=== PATIENT | female | born 1995 | race Caucasian/White ===

== ENCOUNTER 2021-01-10 13:38 | Outpatient (REF) | payer OTHER, SELFPAY ==
[2021-01-10 14:26] LABS: MANUAL DIFF FLAG NO
[2021-01-10 14:31] LABS: Basophils Absolute Auto 0.1 X10*3/uL (0.0-0.2); Basophils Percent Auto 0.9 % (0-2); Eosinophils Percent Auto 0.5 % (0-4); Hematocrit 41.7 % (37-47); Hemoglobin 13.6 g/dl (12.0-16.0); Imm Gran Abs Auto 0.02 X10*3/uL (0.00-0.03); Imm Gran Pct Auto 0.4 % (0.0-0.4); Lymphocytes Absolute Auto 1.9 X10*3/uL (1.2-4.9); Lymphocytes Percent Auto 33.9 % (20-40); Mean Corpuscular HGB Conc 32.6 g/dl (31.0-35.0); Mean Corpuscular Hemoglobin 30.8 pg (27.0-33.0); Mean Corpuscular Volume 94.6 fL (80-98); Monocytes Absolute Auto 0.4 X10*3/uL (0.1-1.2); Monocytes Percent Auto 7.3 % (2-11); Neutrophils Absolute Auto 3.2 X10*3/uL (2.0-8.3); Platelet Count 220 X10*3/uL (160-400); Red Blood Count 4.41 X10*6/uL (4.20-5.50); Red Cell Distribution Width 12.1 % (11.0-16.0); White Blood Count 5.6 X10*3/uL (4.8-10.8)
[2021-01-10 14:51] LABS: Alanine Aminotransferase 14 U/L (0-31); Albumin Level 4.4 g/dL (3.5-5.0); Alkaline Phosphatase 42 U/L (39-117); Anion Gap 14 (12-20); Aspartate Amino Transferase 19 U/L (5-31); Bilirubin Total 0.7 mg/dL (0.0-1.0); Blood Urea Nitrogen 8 mg/dL (9-16); Calcium 10.2 mg/dL (8.4-10.2); Carbon Dioxide 27 mmol/L (22-29); Chloride 106 mmol/L (96-108); Cholesterol 165 mg/dL; Estimated Glomerular Filt Rate > 60; Glucose Random 82 mg/dL (60-115); HDL Cholesterol 68 mg/dL; LDL Cholesterol Calculated 90 mg/dl; Potassium 4.6 mmol/L (3.3-5.1); Sodium 142 mmol/L (135-145); Triglycerides 37 mg/dL
[2021-01-10 15:08] LABS: Thyroid Stimulating Hormone 0.83 uIU/mL (0.32-4.0)
== END 2021-01-10 13:39 | disposition home or self-care (01) ==
LOC: HO.LAB 13:38
PROVIDERS: Visit Provider Internal Medicine
DX: Z00.00 Encounter for general adult medical examination without abnormal findings (principal); F41.0 Panic disorder [episodic paroxysmal anxiety]; J45.909 Unspecified asthma, uncomplicated; L20.9 Atopic dermatitis, unspecified; Z13.31 Encounter for screening for depression; Z68.1 Body mass index [BMI] 19.9 or less, adult
CPT/HCPCS: 36415; 80053; 80061; 84443; 85025

== ENCOUNTER 2023-04-19 08:49 | Outpatient (AMB) | payer OTHER, SELFPAY ==
--- NOTE | 2023-04-19 08:56 | MHC.OFFVIS ---
Intake Vital Signs 04/19/23 08:57 Height 5 ft 4 in Weight 91 lb 11.397 oz BMI 15.7 BP 94/69 Blood Pressure Location Lt brachial Position Sitting Pulse 98 Intake Visit Reasons: Epigastric Pain, Weight Loss, Vomiting Intake Note: Jeffery presents to in office visit today as a new patient for epigastric pain. CC: Patient states that in [place] (about 4 years ago) she was told that her stomach does not empty well and that she had gastritis. She c/o epigastric pain for months. Per patient she vomits depending if she eats spicy foods or foods with sauces . She states that when she lays down flat she sees something moving from her stomach. Per patient her normal weight was 115-120 but she has been losing weight. Salvationist Required: Yes Accompanied by: Spouse Allergies No Known Allergies Allergy (Verified 04/19/23 09:05) HPI Epigastric Pain, Weight Loss, Vomiting HPI Details 28-year-old female here for initial evaluation of epigastric pain and vomiting. She is referred by Beronica Lucas [facility] Mitral valve prolapse with murmur Asthma Delayed gastric emptying via gastric emptying study 05/2021 -past patient of Dr. Moreno Hyperparathyroidism Anxiety/panic attacks * SURGICAL HISTORY Cholecystectomy section Tubal ligation * ALLERGIES: NKDA * MEDITECH LABS: none since 2020 TODAY'S VISIT [place] #Elizabeth Live Her is with her and is supportive. She says she has had a couple of years with gastritis over the past 3-4 years. She has been in the hospital last year for vomiting hyperemesis. She has pain with pressing her stomach in the gastric to epigastric area, this has been over 4 months. When she lays down she feels like something is moving inside my stomach, like a bump. This moves around the periumbilical area. She has frequent BM's since her GB was removed. Her stools are soft and she has post prandial urgency that is worse with sauces, spices, fatty or fried. The GB was removed 6 year ago. She has frequent vomiting, usually every time she eats or moves her bowels. However, she has not vomited over this past month. She finds that smaller more frequent meals addresses this. She was told in [place] that she should not eat fiber and she should eat portions like a bird. She will have cycles of 2-3 days of vomiting, but then a few days w/o vomiting - but this may be because she stopped eating. When she has vomiting she will have chills, tremors, weakness and her stomach hurts and she has to walk bent over. She is losing weight with this, she will struggle to put on a couple of pounds but then loses it again. She has gone from 125 lbs to 90lbs. She wound like to see a outreach consultant and I also think this is a good idea, but we have to find a dx that insurance would cover. Getting labs, GES, considering EGD but she has fears. ROV 4 weeks. [facility] Medical History Delayed gastric emptying Surgical History History of tubal ligation History of section History of cholecystectomy Family History Maternal Grandmother Pancreatic cancer Paternal Grandmother Pancreatic cancer Diabetes Social History Alcohol intake: never Patient Tobacco Use Status: Never used Tobacco Review of Systems Const Denies fatigue, Denies fever(s), Denies night sweats, Reports poor appetite and Reports weight loss Eyes Details: glasses Reports requires corrective lenses ENT Reports Normal hearing present, Denies dental pain, Denies dysphagia, Denies hearing loss, Denies mouth pain, Denies odynophagia, Denies throat swelling, Denies tongue swelling and Reports other (Dentition adequate) Card Reports no additional complaints Resp Reports no additional complaints GI Reports abdominal pain, Denies melena, Denies bloating, Denies hematochezia, Denies constipation, Reports GI cramping, Denies dysphagia, Denies excessive flatus, Denies early satiety, Reports dyspepsia, Denies heartburn, Denies diarrhea, Reports loose stools, Reports nausea, Denies odynophagia, Reports vomiting and Denies hematemesis Skin/Breast Denies pruritus, Denies lesions, Denies rash and Denies jaundice Neuro Reports Normal hearing present and Denies Abnormal speech present Endo Denies fatigue Aller/Immun Denies throat swelling and Denies tongue swelling Physical Exam Vital Signs: Last Vital Signs Pulse 98 04/19/23 08:57 BP 94/69 04/19/23 08:57 BMI result Body Mass Index 15.7 Const General: cooperative, no acute distress, well developed and well groomed Nutritional Appearance: well nourished and underweight Orientation/consciousness: oriented to person, oriented to place and oriented to time Limitations: language barrier HEENT Head: Yes normocephalic and Yes atraumatic Eyes General: appearance normal, both eyes and all related structures Pupils: Equal, round and reactive pupils present Neck Neck: Yes normal visual inspection and Yes no lymphadenopathy Thyroid: Thyroid normal Resp Effort & Inspection: normal respiratory effort and able to speak in complete sentences Auscultation: clear to auscultation bilaterally Cardio Rate: regular rate Rhythm: regular rhythm Heart sounds: Normal, physiologic split S2 sound present Peripheral pulses: radial pulses present and posterior tibial pulses present GI Inspection: No distended and No Abdominal panniculus present Palpation (GI): Soft to palpation, Tenderness to palpation present (GI) in the epigastrum, no guarding, not rigid and No hepatosplenomegaly present Percussion: Yes normal to percussion Auscultation: Hyperactive bowel sounds present Rectal Exam - Female: deferred Skin General skin exam: no rashes or lesions noted, turgor normal, skin not dry, no jaundice, No spider nevi and no striae Rashes: no rashes Nails: normal Neuro General: oriented to person, oriented to place and oriented to time Cranial nerves: Yes Equal, round and reactive pupils present and Yes Normal hearing present Speech: No Abnormal speech present Extrem General: Yes normal to inspection, No clubbing, No cyanosis and No edema Psych Appearance: grossly normal and well kempt Mental Status: mental status grossly normal Speech and movement: Normal speech and movement present Affect: normal affect Attitude: cooperative Thought process: Normal thought process present and not confabulating Thought content: Normal thought content present Insight: Limited insight present (Psych) Judgement: Limited judgement present (Psych) Assessment & Plan Assessment & Plan (1) Nausea and vomiting: Code(s): R11.2 - Nausea with vomiting, unspecified (2) Delayed gastric emptying: Code(s): K30 - Functional dyspepsia (3) Upper abdominal pain: Code(s): R10.10 - Upper abdominal pain, unspecified (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 She says she has had a couple of years with gastritis over the past 3-4 years. She has been in the hospital last year for vomiting hyperemesis. She has pain with pressing her stomach in the gastric to epigastric area, this has been over 4 months. When she lays down she feels like something is moving inside my stomach, like a bump. This moves around the periumbilical area. She has frequent BM's since her GB was removed. Her stools are soft and she has post prandial urgency that is worse with sauces, spices, fatty or fried. The GB was removed 6 year ago. She has frequent vomiting, usually every time she eats or moves her bowels. However, she has not vomited over this past month. She finds that smaller more frequent meals addresses this. [place] was told [place] that she should not eat fiber and she should eat portions like a bird. She will have cycles of 2-3 days of vomiting, but then a few days w/o vomiting - but this may be because she stopped eating. When she has vomiting she will have chills, tremors, weakness and her stomach hurts and she has to walk bent over. She is losing weight with this, she will struggle to put on a couple of pounds but then loses it again. She has gone from 125 lbs to 90lbs. She wound like to see a outreach consultant and I also think this is a good idea, but we have to find a dx that insurance would cover. Getting labs, GES, considering EGD but she has fears. ROV 4 weeks. Orders: Orders NM gastric emptying study Today K30 - Functional dyspepsia, R10.10 - Upper abdominal pain, unspecified, R11.2 - Nausea with vomiting, unspecified Complete Blood Count Auto Diff Today K30 - Functional dyspepsia, R10.10 - Upper abdominal pain, unspecified, R11.2 - Nausea with vomiting, unspecified Comprehensive Met. Panel Today K30 - Functional dyspepsia, R10.10 - Upper abdominal pain, unspecified, R11.2 - Nausea with vomiting, unspecified Medications: New sucralfate (Carafate) 2 grams (2 x 1 gram) PO BEDTIME 60 tabs 3RF K91.5 - Postcholecystectomy syndrome metoclopramide HCl (Reglan) 5 mg PO QIDACHS 120 tabs 3RF K30 - Functional dyspepsia Coding Level of Care Code New Pt Level 3 (58244) Diagnoses Nausea and vomiting R11.2 Delayed gastric emptying K30 Upper abdominal pain R10.10 Post-cholecystectomy syndrome K91.5
[2023-04-19 08:57] VITALS: BP 94/69; PULSE 98; BMI 15.7
== END 2023-04-19 09:57 | disposition home or self-care (01) ==
PROVIDERS: PCP Internal Medicine; Visit Provider Nurse Practitioner
DX: R11.2 Nausea with vomiting, unspecified (principal); K30 Functional dyspepsia; R10.10 Upper abdominal pain, unspecified; K91.5 Postcholecystectomy syndrome
CPT/HCPCS: 99203

== ENCOUNTER 2023-04-19 08:49 | Outpatient (REF) | payer OTHER, SELFPAY ==
[2023-04-19 10:14] LABS: MANUAL DIFF FLAG NO
[2023-04-19 10:55] LABS: Basophils Absolute Auto 0.1 X10*3/uL (0.0-0.2); Hematocrit 40.1 % (37.0-47.0); Hemoglobin 12.9 g/dl (12.0-16.0); Lymphocytes Absolute Auto 1.6 X10*3/uL (1.2-4.9); Lymphocytes Percent Auto 50.7 % (20-40); Mean Corpuscular HGB Conc 32.2 g/dl (31.0-35.0); Mean Corpuscular Volume 96.4 fL (80.0-98.0); Mean Platelet Volume 11.6 fL (9.4-12.3); Monocytes Absolute Auto 0.3 X10*3/uL (0.1-1.2); Monocytes Percent Auto 8.5 % (2-11); Neutrophils Absolute Auto 1.2 x10*3/uL (2.0-8.3); Neutrophils Percent Auto 37.8 % (45-73); Platelet Count 194 X10*3/uL (160-400); Red Blood Count 4.16 X10*6/uL (4.20-5.50); Red Cell Distribution Width 13.2 % (11.0-16.0); White Blood Count 3.1 X10*3/uL (4.8-10.8)
[2023-04-19 11:32] LABS: Alanine Aminotransferase 24 U/L (0-31); Albumin Level 4.3 g/dL (3.5-5.0); Alkaline Phosphatase 51 U/L (39-117); Anion Gap 12 (12-20); Aspartate Amino Transferase 22 U/L (5-31); Bilirubin Total 0.8 mg/dL (0.0-1.0); Blood Urea Nitrogen 11 mg/dL (9-16); Calcium 10.1 mg/dL (8.4-10.2); Carbon Dioxide 28 mmol/L (22-29); Chloride 102 mmol/L (96-108); Estimated Glomerular Filt Rate > 60; Glucose Random 94 mg/dL (60-115); Potassium 4.2 mmol/L (3.3-5.1); Sodium 138 mmol/L (135-145); Total Protein 8.2 g/dL (6.5-8.0)
== END 2023-04-19 08:50 | disposition home or self-care (01) ==
LOC: HO.LAB 08:49
PROVIDERS: PCP Internal Medicine; Visit Provider Nurse Practitioner
DX: R10.10 Upper abdominal pain, unspecified (principal); R11.2 Nausea with vomiting, unspecified; K30 Functional dyspepsia
CPT/HCPCS: 36415; 80053; 85025; 99202

== ENCOUNTER 2023-05-09 09:18 | Outpatient (REF) | payer OTHER, SELFPAY ==
--- NOTE | ~2023-05-09 | US_ITS ---
EXAMINATION: US ABDOMEN COMPLETE CLINICAL INFORMATION: Nausea and vomiting. COMPARISON: None available. TECHNIQUE: Real-time imaging of the abdominal viscera. FINDINGS: PANCREAS: Normal. ABDOMINAL AORTA: The proximal, mid, and distal segments are normal in caliber. INFERIOR VENA CAVA: Visualized portions are normal. LIVER: Normal. The liver is normal in size. The liver contour is normal. Parenchymal echogenicity is normal. No focal hepatic lesion. There is no intrahepatic biliary duct dilatation seen. GALLBLADDER: Surgically absent. COMMON BILE DUCT: Normal in caliber measuring 0.3 cm in diameter. RIGHT KIDNEY: Normal. No hydronephrosis. No renal calculi or focal parenchymal lesions. The kidney measures 9.5 cm in maximum dimension. LEFT KIDNEY: Normal. No hydronephrosis. No renal calculi or focal parenchymal lesions. The kidney measures 8.8 cm in maximum dimension. SPLEEN: Normal. The spleen measures 7.5 cm in maximum dimension. FREE FLUID: None. US/US abdomen complete IMPRESSION: No significant sonographic abnormality to explain the patient's symptoms.
== END 2023-05-09 09:19 | disposition home or self-care (01) ==
LOC: HO.US 09:18
PROVIDERS: PCP Internal Medicine; Visit Provider Nurse Practitioner
DX: R10.10 Upper abdominal pain, unspecified (principal); R11.2 Nausea with vomiting, unspecified; K30 Functional dyspepsia
CPT/HCPCS: 76700

== ENCOUNTER 2023-05-17 09:07 | Outpatient (AMB) | payer OTHER, SELFPAY ==
--- NOTE | 2023-05-17 09:18 | MHC.OFFVIS ---
Intake Vital Signs 05/17/23 09:24 Height 5 ft 4 in Weight 88 lb BMI 15.1 BP 102/72 Blood Pressure Location Lt brachial Position Sitting Pulse 76 Intake Visit Reasons: 4 week follow up Intake Note: Patient follow up for Patient cc: abdominal pain, last 2 weeks she was with vomit. Denies any other GI issues. 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 She says she has had a couple of years with gastritis over the past 3-4 years. She has been in the hospital last year for vomiting hyperemesis. She has pain with pressing her stomach in the gastric to epigastric area, this has been over 4 months. When she lays down she feels like something is moving inside my stomach, like a bump. This moves around the periumbilical area. She has frequent BM's since her GB was removed. Her stools are soft and she has post prandial urgency that is worse with sauces, spices, fatty or fried. The GB was removed 6 year ago. She has frequent vomiting, usually every time she eats or moves her bowels. However, she has not vomited over this past month. She finds that smaller more frequent meals addresses this. She was told in [place] that she should not eat fiber and she should eat portions like a bird. She will have cycles of 2-3 days of vomiting, but then a few days w/o vomiting - but this may be because she stopped eating. When she has vomiting she will have chills, tremors, weakness and her stomach hurts and she has to walk bent over. She is losing weight with this, she will struggle to put on a couple of pounds but then loses it again. She has gone from 125 lbs to 90lbs. She wound like to see a child and family services worker and I also think this is a good idea, but we have to find a dx that insurance would cover. Getting labs, GES, considering EGD but she has fears. ROV 4 weeks. Orders: Orders NM gastric emptyin g study Today K30 - Functional d yspepsia, R10.10 - Upper abdominal p ain, unspecified, R11.2 - Nausea wit h vomiting, unspec ified Complete Blood Cou nt Auto Diff Today K30 - Functional d yspepsia, R10.10 - Upper abdominal p ain, unspecified, R11.2 - Nausea wit h vomiting, unspec ified Comprehensive Met. Panel Today K30 - Functional d yspepsia, R10.10 - Upper abdominal p ain, unspecified, R11.2 - Nausea wit h vomiting, unspec ified Medications: New sucralfate (Carafa te) 2 grams (2 x 1 gra m) PO BEDTIME 60 t abs 3RF K91.5 - Postcholec ystectomy syndrome metoclopramide HCl (Reglan) 5 mg PO QIDACHS 1 20 tabs 3RF K30 - Functional d yspepsia LABS: Laboratory Tests 04/19/23 10:12 WBC 3.1 L RBC 4.16 L Hgb 12.9 Hct 40.1 Plt Count 194 Estimated GFR > 60 Total Bilirubin 0.8 AST 22 ALT 24 Alkaline Phosphata se 51 US ABD ORDERED BY PCP PANCREAS: Normal. ABDOMINAL AORTA: The proximal, mid, and distal segments are normal in caliber. INFERIOR VENA CAVA: Visualized portions are normal. LIVER: Normal. The liver is normal in size. The liver contour is normal. Parenchymal echogenicity is normal. No focal hepatic lesion. There is no intrahepatic biliary duct dilatation seen. GALLBLADDER: Surgically absent. COMMON BILE DUCT: Normal in caliber measuring 0.3 cm in diameter. RIGHT KIDNEY: Normal. No hydronephrosis. No renal calculi or focal parenchymal lesions. The kidney measures 9.5 cm in maximum dimension. LEFT KIDNEY: Normal. No hydronephrosis. No renal calculi or focal parenchymal lesions. The kidney measures 8.8 cm in maximum dimension. SPLEEN: Normal. The spleen measures 7.5 cm in maximum dimension. FREE FLUID: None. US/US abdomen complete IMPRESSION: No significant sonographic abnormality to explain the patient's symptoms. GASTRIC EMPTYING STUDY Scheduled for 05/[address] [place] [facility] #Erinn Cochran She has only vomited once since I saw her and this is improved, her stooling remains the same multiple times a day, no CIC. Her appetite is improved. The pain in her stomach mid to epi area remains and is constant. Her does not see a difference in her sx. These are the same medicines that she was on in [place] in the hospital. Reviewed US and GES is upcoming. Increase the reglan to 10mg qidachs and carafate 3 g/day. ROV after GES on 05/23 [facility] Medical History Delayed gastric emptying Surgical History History of tubal ligation History of section History of cholecystectomy Family History Maternal Grandmother Pancreatic cancer Paternal Grandmother Pancreatic cancer Diabetes Social History Alcohol intake: never Patient Tobacco Use Status: Never used Tobacco Review of Systems Const Denies fatigue, Denies fever(s), Denies night sweats, Reports poor appetite and Denies weight loss Eyes Details: glasses Reports requires corrective lenses ENT Reports Normal hearing present, Denies dental pain, Denies dysphagia, Denies hearing loss, Denies mouth pain, Denies odynophagia, Denies throat swelling, Denies tongue swelling and Reports other (Dentition adequate) Card Reports no additional complaints Resp Reports no additional complaints GI Details: Reports abdominal pain, Denies melena, Denies bloating, Denies hematochezia, Denies constipation, Denies GI cramping, Denies dysphagia, Denies excessive flatus, Denies early satiety, Reports heartburn, Denies diarrhea, Reports loose stools, Reports nausea, Denies odynophagia, Reports vomiting and Denies hematemesis Skin/Breast Denies pruritus, Denies lesions, Denies rash and Denies jaundice Neuro Reports Normal hearing present and Denies Abnormal speech present Endo Denies fatigue Aller/Immun Denies throat swelling and Denies tongue swelling Physical Exam Vital Signs: Last Vital Signs Pulse 76 05/17/23 09:24 BP 102/72 05/17/23 09:24 BMI result Body Mass Index 15.1 Const General: cooperative, no acute distress, well developed and well groomed Nutritional Appearance: well nourished and thin Orientation/consciousness: oriented to person, oriented to place and oriented to time Limitations: language barrier HEENT Head: Yes normocephalic and Yes atraumatic Eyes General: appearance normal, both eyes and all related structures Pupils: Equal, round and reactive pupils present Neck Neck: Yes normal visual inspection and Yes no lymphadenopathy Thyroid: Thyroid normal Resp Effort & Inspection: normal respiratory effort and able to speak in complete sentences Auscultation: clear to auscultation bilaterally Cardio Rate: regular rate Rhythm: regular rhythm Heart sounds: Normal, physiologic split S2 sound present Peripheral pulses: radial pulses present and posterior tibial pulses present GI Inspection: No distended and No Abdominal panniculus present Palpation (GI): Soft to palpation, nontender, no guarding, not rigid and No hepatosplenomegaly present Percussion: Yes normal to percussion Auscultation: normal bowel sounds Rectal Exam - Female: deferred Skin General skin exam: no rashes or lesions noted, turgor normal, skin not dry, no jaundice, No spider nevi and no striae Rashes: no rashes Nails: normal Neuro General: oriented to person, oriented to place and oriented to time Cranial nerves: Yes Equal, round and reactive pupils present and Yes Normal hearing present Speech: No Abnormal speech present Extrem General: Yes normal to inspection, No clubbing, No cyanosis and No edema Psych Appearance: grossly normal and well kempt Mental Status: mental status grossly normal Speech and movement: Normal speech and movement present Affect: normal affect Attitude: cooperative Thought process: Normal thought process present and not confabulating Thought content: Normal thought content present Insight: Limited insight present (Psych) Judgement: Limited judgement present (Psych) Results Reviewed Results Reviewed: Laboratory Tests 04/19/23 10:12 WBC 3.1 L RBC 4.16 L Hgb 12.9 Hct 40.1 Plt Count 194 Estimated GFR > 60 Total Bilirubin 0.8 AST 22 ALT 24 Alkaline Phosphatase 51 US ABD ORDERED BY PCP PANCREAS: Normal. ABDOMINAL AORTA: The proximal, mid, and distal segments are normal in caliber. INFERIOR VENA CAVA: Visualized portions are normal. LIVER: Normal. The liver is normal in size. The liver contour is normal. Parenchymal echogenicity is normal. No focal hepatic lesion. There is no intrahepatic biliary duct dilatation seen. GALLBLADDER: Surgically absent. COMMON BILE DUCT: Normal in caliber measuring 0.3 cm in diameter. RIGHT KIDNEY: Normal. No hydronephrosis. No renal calculi or focal parenchymal lesions. The kidney measures 9.5 cm in maximum dimension. LEFT KIDNEY: Normal. No hydronephrosis. No renal calculi or focal parenchymal lesions. The kidney measures 8.8 cm in maximum dimension. SPLEEN: Normal. The spleen measures 7.5 cm in maximum dimension. FREE FLUID: None. US/US abdomen complete IMPRESSION: No significant sonographic abnormality to explain the patient's symptoms. Assessment & Plan Assessment & Plan (1) Post-cholecystectomy syndrome: Code(s): K91.5 - Postcholecystectomy syndrome (2) Upper abdominal pain: Code(s): R10.10 - Upper abdominal pain, unspecified (3) Delayed gastric emptying: Code(s): K30 - Functional dyspepsia (4) Nausea and vomiting: Code(s): R11.2 - Nausea with vomiting, unspecified Plan [facility] #Erinn Dimas She has only vomited once since I saw her and this is improved, her stooling remains the same multiple times a day, no CIC. Her appetite is improved. The pain in her stomach mid to epi area remains and is constant. Her does not see a difference in her sx. These are the same medicines that she was on in [place] in the hospital. Reviewed US and GES is upcoming. Increase the reglan to 10mg qidachs and carafate 3 g/day. ROV after GES on 05/23 Orders: Orders EGD with [facility] - GI Use Only 05/17/23 R10.10 - Upper abdominal pain, unspecified, R11.2 - Nausea with vomiting, unspecified Medications: New metoclopramide HCl (Reglan) 10 mg PO QIDACHS 120 tabs 6RF R11.2 - Nausea with vomiting, unspecified, K30 - Functional dyspepsia Changed From sucralfate 2 grams (2 x 1 gram) PO BEDTIME 60 tabs 3RF K91.5 - Postcholecystectomy syndrome To sucralfate (Carafate) 3 grams (3 x 1 gram) PO BEDTIME 60 tabs 6RF K91.5 - Postcholecystectomy syndrome Discontinued metoclopramide HCl Discontinued Reason: Doctor's Order 5 mg PO QIDACHS 120 tabs 3RF K30 - Functional dyspepsia Coding Level of Care Code Est Pt Level 3 (76852) Diagnoses Post-cholecystectomy syndrome K91.5 Upper abdominal pain R10.10 Delayed gastric emptying K30 Nausea and vomiting R11.2
[2023-05-17 09:24] VITALS: BP 102/72; PULSE 76; BMI 15.1
== END 2023-05-17 09:51 | disposition home or self-care (01) ==
PROVIDERS: PCP Internal Medicine; Visit Provider Nurse Practitioner
DX: K91.5 Postcholecystectomy syndrome (principal); R10.10 Upper abdominal pain, unspecified; K30 Functional dyspepsia; R11.2 Nausea with vomiting, unspecified
CPT/HCPCS: 99213

== ENCOUNTER → 2023-05-17 09:07 | Outpatient (BNVA) | payer OTHER, SELFPAY | PROVIDERS: PCP Internal Medicine; Visit Provider Nurse Practitioner | DX: K91.5 Postcholecystectomy syndrome (principal); K30 Functional dyspepsia; R10.10 Upper abdominal pain, unspecified; R11.2 Nausea with vomiting, unspecified | CPT/HCPCS: 99212 ==

== ENCOUNTER → 2023-05-23 08:20 | Outpatient (REF) | payer OTHER, SELFPAY ==
--- NOTE | ~2023-05-23 | NM_ITS ---
EXAMINATION: DC RADIONUCLIDE SOLID FOOD GASTRIC EMPTYING 4-HOUR STUDY CLINICAL INFORMATION: Nausea and vomiting, unspecified. COMPARISON: Abdominal ultrasound done on 05/09/2023. TECHNIQUE: A standard meal consisting of 4 oz of Egg Beaters brand tagged with 900 microcuries Tc-99m Sulfur Colloid, 8 oz water and 2 slices of toast with jelly was administered orally to the patient. Images were obtained using a dual head gamma camera in the anterior and posterior projections over of the stomach immediately post ingestion and at hourly intervals up to 4 hours post ingestion. The anterior and posterior counts at each time interval were averaged using the geometric mean and expressed as percentage of the immediate post ingestion counts. FINDINGS: There is good visualization of activity in the stomach immediately post ingestion. As the study progresses, there is good clearance of activity from the stomach and visualization of progressively increasing small bowel activity. By the end of the study, there is almost no retention noted in the stomach. Retention in the stomach at each time interval was: 1 hour 90% (normal 37%-90%) 2 hours 37% (normal 30%-60%) 3 hours 17% 4 hours 6% (normal 0%-10%) DC/DC gastric emptying study IMPRESSION: Normal 4-hour solid food gastric emptying study. For solid meal, rapid gastric emptying is less than 30% at 60 minutes. Delayed gastric emptying criteria is more than 60% remaining at 120 minutes or more than 10% at 240 minutes. The 4-hour value is the best discriminator of a normal or abnormal result). Gastric emptying study grading per JNMT Consensus Recommendations in 2008 (https://tech.snmjournals.org/content/36//44) Grade 1 (mild retention): 11-20% at 4h Grade 2 (moderate retention): 21-35% at 4h Grade 3 (severe retention): 36-50% at 4h Grade 4 (very severe retention): >50% retention at 4h
== END ==
LOC: HO.NUCMED 08:20
PROVIDERS: PCP Internal Medicine; Visit Provider Nurse Practitioner
DX: R11.2 Nausea with vomiting, unspecified (principal); K30 Functional dyspepsia; R10.10 Upper abdominal pain, unspecified
CPT/HCPCS: 78264; A9541

== ENCOUNTER 2023-06-08 09:29 | Outpatient (AMB) | payer OTHER, SELFPAY ==
--- NOTE | 2023-06-08 09:42 | MHC.OFFVIS ---
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 She says she has had a couple of years with gastritis over the past 3-4 years. She has been in the hospital last year for vomiting hyperemesis. She has pain with pressing her stomach in the gastric to epigastric area, this has been over 4 months. When she lays down she feels like something is moving inside my stomach, like a bump. This moves around the periumbilical area. She has frequent BM's since her GB was removed. Her stools are soft and she has post prandial urgency that is worse with sauces, spices, fatty or fried. The GB was removed 6 year ago. She has frequent vomiting, usually every time she eats or moves her bowels. However, she has not vomited over this past month. She finds that smaller more frequent meals addresses this. She was told in [place] that she should not eat fiber and she should eat portions like a bird. She will have cycles of 2-3 days of vomiting, but then a few days w/o vomiting - but this may be because she stopped eating. When she has vomiting she will have chills, tremors, weakness and her stomach hurts and she has to walk bent over. She is losing weight with this, she will struggle to put on a couple of pounds but then loses it again. She has gone from 125 lbs to 90lbs. She wound like to see a retail experience specialist and I also think this is a good idea, but we have to find a dx that insurance would cover. Getting labs, GES, considering EGD but she has fears. ROV 4 weeks. Orders: Orders NM gastric emptyin g study Today K30 - Functional d yspepsia, R10.10 - Upper abdominal p ain, unspecified, R11.2 - Nausea wit h vomiting, unspec ified Complete Blood Cou nt Auto Diff Today K30 - Functional d yspepsia, R10.10 - Upper abdominal p ain, unspecified, R11.2 - Nausea wit h vomiting, unspec ified Comprehensive Met. Panel Today K30 - Functional d yspepsia, R10.10 - Upper abdominal p ain, unspecified, R11.2 - Nausea wit h vomiting, unspec ified Medications: New sucralfate (Carafa te) 2 grams (2 x 1 gra m) PO BEDTIME 60 t abs 3RF K91.5 - Postcholec ystectomy syndrome metoclopramide HCl (Reglan) 5 mg PO QIDACHS 1 20 tabs 3RF K30 - Functional d yspepsia LABS: Laboratory Tests 04/19/23 10:12 WBC 3.1 L Hgb 12.9 Hct 40.1 Plt Count 194 Estimated GFR > 60 Total Bilirubin 0.8 AST 22 ALT 24 Alkaline Phosphata se 51 GASTRIC EMPTYING STUDY 05/23/23 MPRESSION: Normal 4-hour solid food gastric emptying study. TODAY'S VISIT [facility] #Elena Live She is here today with her who is supportive. She feels that the Carafate was causing her additional abdominal pain particularly across the upper abdomen. Given that this is not helping we will discontinue this medication. On the good side she has not had any vomiting since she last saw me so I think the metoclopramide is doing well by her. At this point until I have more information from further studies I think we will try giving her an appetite promoting medicine such as Megace. I let her know that this is what our plan is and that she can try the medication and if it does anything to her that is unpleasant she can simply discontinue it. I would not want her to continue taking it if it gave her any problems like the Carafate did. She denies any constipation. Return office visit in 4 weeks [facility] Medical History Delayed gastric emptying Surgical History History of tubal ligation History of section History of cholecystectomy Family History Maternal Grandmother Pancreatic cancer Paternal Grandmother Pancreatic cancer Diabetes Social History Alcohol intake: never Patient Tobacco Use Status: Never used Tobacco Review of Systems Const Denies fatigue, Denies fever(s), Denies night sweats, Reports poor appetite and Denies weight loss Eyes Details: wt loss ENT Reports Normal hearing present, Denies dental pain, Denies dysphagia, Denies hearing loss, Denies mouth pain, Denies odynophagia, Denies throat swelling, Denies tongue swelling and Reports other (Dentition adequate) Card Reports no additional complaints Resp Reports no additional complaints GI Details: Reports abdominal pain, Denies melena, Denies bloating, Denies hematochezia, Denies constipation, Denies GI cramping, Denies dysphagia, Denies excessive flatus, Reports early satiety, Denies heartburn, Denies diarrhea, Denies nausea, Denies odynophagia, Denies vomiting and Denies hematemesis Skin/Breast Denies pruritus, Denies lesions, Denies rash and Denies jaundice Neuro Reports Normal hearing present and Denies Abnormal speech present Endo Denies fatigue Aller/Immun Denies throat swelling and Denies tongue swelling Physical Exam Const General: cooperative, no acute distress, well developed and well groomed Nutritional Appearance: well nourished and thin Orientation/consciousness: oriented to person, oriented to place and oriented to time Limitations: language barrier HEENT Head: Yes normocephalic and Yes atraumatic Eyes General: appearance normal, both eyes and all related structures Pupils: Equal, round and reactive pupils present Neck Neck: Yes normal visual inspection and Yes no lymphadenopathy Thyroid: Thyroid normal Resp Effort & Inspection: normal respiratory effort and able to speak in complete sentences Auscultation: clear to auscultation bilaterally Cardio Rate: regular rate Rhythm: regular rhythm Heart sounds: Normal, physiologic split S2 sound present Peripheral pulses: radial pulses present and posterior tibial pulses present GI Inspection: No distended and No Abdominal panniculus present Palpation (GI): Soft to palpation, nontender, no guarding, not rigid and No hepatosplenomegaly present Percussion: Yes normal to percussion Auscultation: normal bowel sounds Rectal Exam - Female: deferred Skin General skin exam: no rashes or lesions noted, turgor normal, skin not dry, no jaundice, No spider nevi and no striae Rashes: no rashes Nails: normal Neuro General: oriented to person, oriented to place and oriented to time Cranial nerves: Yes Equal, round and reactive pupils present and Yes Normal hearing present Speech: No Abnormal speech present Extrem General: Yes normal to inspection, No clubbing, No cyanosis and No edema Psych Appearance: grossly normal and well kempt Mental Status: mental status grossly normal Speech and movement: Normal speech and movement present Affect: normal affect Attitude: cooperative Thought process: Normal thought process present and not confabulating Thought content: Normal thought content present Insight: Limited insight present (Psych) Judgement: Limited judgement present (Psych) Assessment & Plan Assessment & Plan (1) Failure to thrive in adult: Code(s): R62.7 - Adult failure to thrive (2) Weight loss, abnormal: Code(s): R63.4 - Abnormal weight loss Plan [facility] #Elena Live She is here today with her who is supportive. She feels that the Carafate was causing her additional abdominal pain particularly across the upper abdomen. Given that this is not helping we will discontinue this medication. On the good side she has not had any vomiting since she last saw me so I think the metoclopramide is doing well by her. At this point until I have more information from further studies I think we will try giving her an appetite promoting medicine such as Megace. I let her know that this is what our plan is and that she can try the medication and if it does anything to her that is unpleasant she can simply discontinue it. I would not want her to continue taking it if it gave her any problems like the Carafate did. She denies any constipation. Return office visit in 4 weeks Medications: New megestrol 20 mg PO BID 60 tabs 6RF R62.7 - Adult failure to thrive, R63.4 - Abnormal weight loss On Hold sucralfate (Carafate) Hold Comment: Doctor's Order 3 grams (3 x 1 gram) PO BEDTIME 60 tabs 6RF K91.5 - Postcholecystectomy syndrome Coding Level of Care Code Est Pt Level 3 (04226) Diagnoses Failure to thrive in adult R62.7 Weight loss, abnormal R63.4
== END 2023-06-08 10:00 | disposition home or self-care (01) ==
PROVIDERS: PCP Internal Medicine; Visit Provider Nurse Practitioner
DX: R62.7 Adult failure to thrive (principal); R63.4 Abnormal weight loss
CPT/HCPCS: 99213

== ENCOUNTER → 2023-06-08 09:29 | Outpatient (BNVA) | payer OTHER, SELFPAY | PROVIDERS: PCP Internal Medicine; Visit Provider Nurse Practitioner | DX: R62.7 Adult failure to thrive (principal); R63.4 Abnormal weight loss | CPT/HCPCS: 99212 ==

== ENCOUNTER 2023-07-02 11:28 | Day surgery (SDC) | payer OTHER, SELFPAY ==
--- NOTE | 2023-06-28 13:18 | HO.ANESPROP2 ---
Documented by User: Zoraida Enriquez NP 06/28/23 13:19 HPI - Anesthesia Eval Consult details Narrative: 28yo F for Upper Endoscopy PMFSH Active Problems Active Problems: All Active Problems Weight loss, abnormal (Acute) Failure to thrive in adult (Acute) Post-cholecystectomy syndrome (Acute) Upper abdominal pain (Acute) Delayed gastric emptying (Acute) Nausea and vomiting (Acute) Panic attacks (Acute) Hyperparathyroidism (Acute) Mitral valve prolapse (Acute) Asthma (Acute) Past Medical History Medical History Astigmatism Underweight Panic attacks Myopia Thyroid disease GERD (gastroesophageal reflux disease) Asthma Delayed gastric emptying Family History Family History Maternal Grandmother Pancreatic cancer Paternal Grandmother Pancreatic cancer Diabetes Surgical History Surgical History History of tubal ligation History of section History of cholecystectomy Social History Social History Alcohol intake: never Patient Tobacco Use Status: Never used Tobacco Advance Directives: No Advance Directives Information Provided: Yes Meds Allergies Allergy/AdvReac Type Severity Reaction Status Date / Time No Known Allergies Allergy Verified 05/17/23 09:18 Home Medications ?Medication ?Instructions ?Recorded ?Confirmed ?Last Taken ?Type albuterol sulfate 90 mcg/actuation 2 puff inhalation Q4-6H PRN 04/19/23 Unknown History aerosol inhaler (Ventolin HFA) fluticasone 250 mcg-salmeterol 50 1 ea inhalation BID 04/19/23 Unknown History mcg/dose blistr powdr for inhalation (Advair Diskus) ketotifen fumarate 0.025 % (0.035 1 drp ophthalmic (eye) PRN 04/19/23 Unknown History %) eye drops metoprolol succinate 25 mg 12.5 mg PO DAILY 04/19/23 07/02/23 History tablet,extended release 24 hr omeprazole 20 mg capsule,delayed 20 mg PO DAILY 04/19/23 Unknown History release Assessment and Plan Assessment Anesthesia Assessment: Chart Reviewed Documented by User: Elizabeth Jameson MD 07/02/23 12:56 PMFSH Past Medical History Medical History Astigmatism Underweight Panic attacks Myopia Thyroid disease GERD (gastroesophageal reflux disease) Asthma Delayed gastric emptying Family History Family History Maternal Grandmother Pancreatic cancer Paternal Grandmother Pancreatic cancer Diabetes Surgical History Surgical History History of tubal ligation History of section History of cholecystectomy History of Problems with Anesthesia: No Social History Social History Alcohol intake: never Patient Tobacco Use Status: Never used Tobacco Advance Directives: No Advance Directives Information Provided: Yes Meds Allergies Allergy/AdvReac Type Severity Reaction Status Date / Time No Known Allergies Allergy Verified 05/17/23 09:18 Home Medications ?Medication ?Instructions ?Recorded ?Confirmed ?Last Taken ?Type albuterol sulfate 90 mcg/actuation 2 puff inhalation Q4-6H PRN 04/19/23 Unknown History aerosol inhaler (Ventolin HFA) fluticasone 250 mcg-salmeterol 50 1 ea inhalation BID 04/19/23 Unknown History mcg/dose blistr powdr for inhalation (Advair Diskus) ketotifen fumarate 0.025 % (0.035 1 drp ophthalmic (eye) PRN 04/19/23 Unknown History %) eye drops metoprolol succinate 25 mg 12.5 mg PO DAILY 04/19/23 07/02/23 History tablet,extended release 24 hr omeprazole 20 mg capsule,delayed 20 mg PO DAILY 04/19/23 Unknown History release Exam Airway Mallampati Class: I TM Dist: >3cm Neck ROM: Full Loose/Missing/Broken Teeth: No Heart: RRR Lungs: CTA Assessment and Plan Assessment Anesthesia Assessment: Anesthesia Plan Discussed Final Anesthetic Review History of Problems with Anesthesia: No NPO: Yes ASA Class: II Final Preanesthetic Review: Meds/Allgs Chart Reviewed, Consent Obtained/Reviewed and Anes Risks/Benef Reviewed Patient Risk: Low Procedure Risk: Intermediate Anesthetic Plan Anesthetic Plan: MAC: Disposition: Standard PACU
[2023-07-02 12:47] VITALS: BMI 16.0
--- NOTE | 2023-07-02 12:50 | P.HPSUR_ITS ---
Pre-Procedural Eval Section A - 24 Hr Update-Section A only Date of Service: 07/02/23 Section B - Complete if H&P > 30 days Chief Complaint: Abnormal weight loss Relevant Family History (Specify if Yes): No Relevant Social History: None Present Medications: see Short Stay Collaborative assessment Medical History: Significant History (Astigmatism Underweight Panic attacks Myopia Thyroid disease GERD (gastroesophageal reflux disease) Asthma Delayed gastric emptying) History of Previous Operations: Relevant previous surgery/procedure and date(s) (History of tubal ligation History of section History of cholecystectomy) Allergies: Allergies Allergy/AdvReac Type Severity Reaction Status Date / Time No Known Allergies Allergy Verified 05/17/23 09:18 Review of Systems Sugical H&P ROS: Negative: Constitution, Cardiovascular, Respiratory, Neurolo gical, Psychiatric, Hem-Onc, Allergic/Immunologic, Gastrointestinal, Genitourinary, Musculoskeletal, Integumentary, Endocrine and Eyes/Ears/Nose/Throat Exam Surgical H&P Exam: Normal: HEENT, Normal: Heart, Normal: Lungs, Normal: Extremities, Normal: Abdomen, Normal: Skin and Normal: Neurological Plan Diagnosis/Plan: Unchanged I have reviewed the history and physical and performed a pertinent physical examination on my patient. No changes have occurred unless specified. EGD for Ix of cyclic vomiting, weight loss, variable appetite Time Spent With Patient Time: Total time managing care of this patient today ____ minutes.
[2023-07-02 12:53] VITALS: BP 124/80; PULSE 63; RESP 16; TEMP 37.2; O2SAT 100
[2023-07-02 12:54] VITALS: BMI 16.0
[2023-07-02] MEDS: Lactated Ringers 1,000 ML 100 ML IVCONT (13:19)
--- NOTE | 2023-07-02 13:21 | W.PM.OPN ---
Operative Note Operative Note Date of Service: 07/02/23 Narrative: Procedure Description: EGD Indication: weight loss, episodic vomiting Anesthesia: MAC FLEXIBLE TRANSORAL UPPER GASTROINTESTINAL ENDOSCOPY UPPER ENDOSCOPY Consent: Indications for the procedure and potential complications of bleeding, perforation, reaction to medications and missed diagnosis were discussed with the patient and informed consent was obtained. Instrument: Olympus GIF H 190 J mid size upper endoscope Monitoring: Vital signs and clinical assessment, continuous EKG monitoring, Pulse oximetry, Carbon Dioxide monitoring and blood pressure monitoring were done throughout the procedure. Procedure: The patient was placed in the left lateral decubitis position and pre-procedure medications were administered and a bite block was placed. The endoscope was inserted into the mouth and advanced under direct vision to the third part of duodenum. A careful inspection was made as the upper endoscope was withdrawn including a retroflexed examination of the proximal stomach; Findings and interventions are described below. Findings: Larynx:normal Esophagus: GE junction at 40 cm, diaphragm hiatus at 40 cm, mild erythema and inflammation GEJ, bx taken from here, and distal, proximal areas Stomach: patchy erythema and scarring . Biopsies were obtained. Grade 2 flap valve on retroflexed examination of the cardia. Duodenum: Normal bulb and descending duodenum, bx taken Intervention: Biopsies as noted above, Impression/Findings: gastritis mild esophagitis PLAN: await bx, if neg consider Us duplex to r/o SMA and MALS GERD precautions if diagnostic testing neg then maybe consider rx for cyclic vomiting syndrome
[2023-07-02 13:57] VITALS: BP 115/62; PULSE 87; RESP 18; TEMP 37.2; O2SAT 99
[2023-07-02 14:12] VITALS: BP 108/68; PULSE 67; RESP 16; TEMP 37.2; O2SAT 100
== END 2023-07-02 15:03 | disposition home or self-care (01) ==
PROVIDERS: PCP Internal Medicine; Visit Provider Internal Medicine Gastroenterology
PROC: 0DJ08ZZ Inspection of Upper Intestinal Tract, Via Natural or Artificial Opening Endoscopic (ICD-10-PCS; CPT 43235; principal; 2023-07-02 15:20)
DX: R63.4 Abnormal weight loss (principal); R62.7 Adult failure to thrive; R11.10 Vomiting, unspecified; K29.50 Unspecified chronic gastritis without bleeding; K20.80 Other esophagitis without bleeding; K44.9 Diaphragmatic hernia without obstruction or gangrene; K30 Functional dyspepsia; K91.5 Postcholecystectomy syndrome; K21.9 Gastro-esophageal reflux disease without esophagitis; E07.9 Disorder of thyroid, unspecified; J45.909 Unspecified asthma, uncomplicated; H52.209 Unspecified astigmatism, unspecified eye; H52.10 Myopia, unspecified eye; Z79.51 Long term (current) use of inhaled steroids; Z79.899 Other long term (current) drug therapy
CPT/HCPCS: 43239; 88305; 88313; 88341; 88342

== ENCOUNTER → 2023-07-02 11:28 | Outpatient (BNV) | payer OTHER, SELFPAY | PROVIDERS: PCP Internal Medicine; Visit Provider Internal Medicine Gastroenterology | DX: K29.70 Gastritis, unspecified, without bleeding (principal); K20.90 Esophagitis, unspecified without bleeding | CPT/HCPCS: 43239 ==

== ENCOUNTER 2024-07-24 11:39 | Outpatient (AMB) | payer OTHER, SELFPAY ==
--- NOTE | 2024-07-24 11:43 | A.OFFVIS_ITS ---
Vital Signs 07/24/24 11:44 Height 5 ft 4 in Weight 127 lb 13.89 oz BMI 21.9 BP 119/74 Blood Pressure Location Lt brachial Position Sitting Pulse 97 Intake Visit Reasons: S/p egd Intake Note: Jeffery presents in the office as a follow up EGD. CC: States that she is having nausea, vomiting, gas, pains in the stomach, reflux and diarrhea. Occupational Health Rn Required: Yes Occupational Health Rn Name: Chrissy [id number] Allergies No Known Allergies Allergy (Verified 07/24/24 11:49) HPI HPI S/p egd: Details: Assessment & Plan (1) Failure to thrive in adult: Code(s): R62.7 - Adult failure to thrive (2) Weight loss, abnormal: Code(s): R63.4 - Abnormal weight loss Plan [facility] #[facility] Live She is here today with her who is supportive. She feels that the Carafate was causing her additional abdominal pain particularly across the upper abdomen. Given that this is not helping we will discontinue this medication. On the good side she has not had any vomiting since she last saw me so I think the metoclopramide is doing well by her. At this point until I have more information from further studies I think we will try giving her an appetite promoting medicine such as Megace. I let her know that this is what our plan is and that she can try the medication and if it does anything to her that is unpleasant she can simply discontinue it. I would not want her to continue taking it if it gave her any problems like the Carafate did. She denies any constipation. 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 Biopsies were obtained. Grade 2 flap valve on retroflexed examination of the cardia. Duodenum: Normal bulb and descending duodenum, bx taken Intervention: Biopsies as noted above, Impression/Findings: gastritis mild esophagitis PLAN: await bx, if neg consider Us duplex to r/o SMA and MALS GERD precautions if diagnostic testing neg then maybe consider rx for cyclic vomiting syndrome BIOPSY Received: 07/02/23 Diagnosis A. Duodenum, biopsy: Duodenal mucosa within normal limits. B. Stomach, biopsy: Oxyntic mucosa with mild chronic inactive inflammation; no Helicobacter organisms seen. C. GE junction, biopsy: - Small strips of gastric epithelium within normal limits; no intestinal metaplasia seen. - Squamous mucosa within normal limits. D. Esophagus, distal, biopsy: Squamous epithelium within normal limits; no inflammation seen. E. Esophagus, proximal, biopsy:Squamous epithelium within normal limits; no inflammation seen. Comment: No amyloid deposition is seen, supported by [place]-red stain. Studies for IgG and IgG4 will be addended. CD117 Immunohistochemistry (# cells per high powered field): A. Duodenum (47) B. Stomach (29) C. GE junction (5) D. Distal esophagus (3) E. Proximal esophagus (0) GI tract involvement by systemic mastocytosis is characterized by aggregates of atypical appearing mast cells, which are often oval or spindle-shaped - features not seen in the current specimens. In reactive processes, mast cells are not atypical appearing and occur singly (as in this case). In one study (Miguel et al. PMID [id number]), the number of mast cells per high-powered field in IBS patients with diarrhea was elevated compared to asymptomatic patients (30 per high-powered field for IBS; 26 per high- powered field for asymptomatic patients in colon biopsies; statistically significant). Mast cell density in other areas of the GI tract is not well characterized. There are myriad other causes of elevated mast cells in GI mucosa, including allergies, celiac disease, malignancies, infections and drugs, among other etiologies (Kiersten, etal. PMID [id number]). Correlation with the patient's clinical presentation and other laboratory studies is necessary TODAY'S VISIT [place] #[id number], Lamine, then her as wifi was bad She was doing very well until about a month ago. Then all fo the severe sx returned. She indeed has evidence of a lot of gastric injury with scarring - but biopsies seemed to show inactive and healing inflammation. So it seems that medications WERE working.... BUT with review of medicines, it seems that the omeprazole fell off of her list for refills. This would easily explain her relapse, as she likely has s/p maicol bile medicated PUD and gastritis. I will restart PPI on pantorapzole qd. She was taken off of the megace as it was interfering with her menses and hormones. Overall, she i still happy with how her tx id progressing as she went from 91# at start of tx to 127 today. ROV 3 weeks. [facility]LY [facility], [facility] Medical History (Updated 07/24/24 @ 12:30 by HETAL Young) Astigmatism Underweight Panic attacks Myopia Thyroid disease GERD (gastroesophageal reflux disease) Asthma Delayed gastric emptying Surgical History (Updated 07/24/24 @ 11:49 by JOSSE Hernandez) Hx of endoscopy History of tubal ligation History of section History of cholecystectomy Family History Maternal Grandmother Pancreatic cancer Paternal Grandmother Pancreatic cancer Diabetes Social History Alcohol intake: never Patient Tobacco Use Status: Never used Tobacco Review of Systems Const Denies fatigue, Denies fever(s), Denies night sweats, Denies poor appetite, Repo rts weight gain and Denies weight loss ENT Reports Normal hearing present, Denies dental pain, Denies dysphagia, Denies hearing loss, Denies mouth pain, Denies odynophagia, Denies throat swelling, Denies tongue swelling and Reports other (Dentition adequate) Card Reports no additional complaints Resp Reports no additional complaints GI Details: Reports abdominal pain, Denies melena, Denies bloating, Denies hematochezia, Denies constipation, Denies GI cramping, Denies dysphagia, Denies excessive flatus, Denies early satiety, Denies heartburn, Denies diarrhea, Reports nausea, Denies odynophagia, Reports vomiting and Denies hematemesis Skin/Breast Denies pruritus, Denies lesions, Denies rash and Denies jaundice Neuro Reports Normal hearing present and Denies Abnormal speech present Endo Denies fatigue Aller/Immun Denies throat swelling and Denies tongue swelling Physical Exam Vital Signs: Last Vital Signs Pulse 97 07/24/24 11:44 BP 119/74 07/24/24 11:44 BMI result Body Mass Index 21.9 Const General: cooperative, no acute distress, well developed and well groomed Nutritional Appearance: average body habitus and well nourished Orientation/consciousness: oriented to person, oriented to place and oriented to time Limitations: language barrier HEENT Head: Yes normocephalic and Yes atraumatic Eyes General: appearance normal, both eyes and all related structures Pupils: Equal, round and reactive pupils present Neck Neck: Yes normal visual inspection and Yes no lymphadenopathy Thyroid: Thyroid normal Resp Effort & Inspection: normal respiratory effort and able to speak in complete sentences Auscultation: clear to auscultation bilaterally Cardio Rate: regular rate Rhythm: regular rhythm Heart sounds: Normal, physiologic split S2 sound present Peripheral pulses: radial pulses present and posterior tibial pulses present GI Inspection: No distended and No Abdominal panniculus present Palpation (GI): Soft to palpation, nontender, no guarding, not rigid and No hepatosplenomegaly present Percussion: Yes normal to percussion Auscultation: normal bowel sounds Rectal Exam - Female: deferred Skin General skin exam: no rashes or lesions noted, turgor normal, skin not dry, no jaundice, No spider nevi and no striae Rashes: no rashes Nails: normal Neuro General: oriented to person, oriented to place and oriented to time Cranial nerves: Yes Equal, round and reactive pupils present and Yes Normal hearing present Speech: No Abnormal speech present Extrem General: Yes normal to inspection, No clubbing, No cyanosis and No edema Psych Appearance: grossly normal and well kempt Mental Status: mental status grossly normal Speech and movement: Normal speech and movement present Affect: normal affect Attitude: cooperative Thought process: Normal thought process present and not confabulating Thought content: Normal thought content present Insight: Limited insight present (Psych) Judgement: Limited judgement present (Psych) Results Reviewed Results Reviewed: EGD 07/02/23 Findings: Larynx:normal Esophagus: GE junction at 40 cm, diaphragm hiatus at 40 cm, mild erythema and inflammation GEJ, bx taken from here, and distal, proximal areas Stomach: patchy erythema and scarring . Biopsies were obtained. Grade 2 flap valve on retroflexed examination of the cardia. Duodenum: Normal bulb and descending duodenum, bx taken Intervention: Biopsies as noted above, Impression/Findings: gastritis mild esophagitis PLAN: await bx, if neg consider Us duplex to r/o SMA and MALS GERD precautions if diagnostic testing neg then maybe consider rx for cyclic vomiting syndrome BIOPSY Received: 07/02/23 Diagnosis A. Duodenum, biopsy: Duodenal mucosa within normal limits. B. Stomach, biopsy: Oxyntic mucosa with mild chronic inactive inflammation; no Helicobacter organisms seen. C. GE junction, biopsy: - Small strips of gastric epithelium within normal limits; no intestinal metaplasia seen. - Squamous mucosa within normal limits. D. Esophagus, distal, biopsy: Squamous epithelium within normal limits; no inflammation seen. E. Esophagus, proximal, biopsy:Squamous epithelium within normal limits; no inflammation seen. Comment: No amyloid deposition is seen, supported by [place]-red stain. Studies for IgG and IgG4 will be addended. CD117 Immunohistochemistry (# cells per high powered field): A. Duodenum (47) B. Stomach (29) C. GE junction (5) D. Distal esophagus (3) E. Proximal esophagus (0) GI tract involvement by systemic mastocytosis is characterized by aggregates of atypical appearing mast cells, which are often oval or spindle-shaped - features not seen in the current specimens. In reactive processes, mast cells are not atypical appearing and occur singly (as in this case). 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 Then all fo the severe sx returned. She indeed has evidence of a lot of gastric injury with scarring - but biopsies seemed to show inactive and healing inflammation. So it seems that medications WERE working.... BUT with review of medicines, it seems that the omeprazole fell off of her list for refills. This would easily explain her relapse, as she likely has s/p maicol bile medicated PUD and gastritis. I will restart PPI on pantorapzole qd. She was taken off of the megace as it was interfering with her menses and hormones. Overall, she is still happy with how her tx id progressing as she went from 91# at start of tx to 127 today. They (she and her ) expressed gratitude for the work be done so far, and I think if we get her back on a PPI we will get her back to a manageable situation. She continues on her metoclopramide 10 mg 4 times a day. This was a very long visit because we had to go over all of test results and then back track over what might have caused her to have a sudden reoccurrence of symptoms that included a very thorough medication review. Of course we also had to educate her about the likely underlying cause which I believe may be bile gastritis leading to peptic ulcer disease since she is status post cholecystectomy. ROV 3 weeks. 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
[2024-07-24 11:44] VITALS: BP 119/74; PULSE 97; BMI 21.9
== END 2024-07-24 12:41 | disposition home or self-care (01) ==
LOC: HO.HGI 11:40
PROVIDERS: PCP Internal Medicine; Visit Provider Nurse Practitioner
DX: K30 Functional dyspepsia (principal); R11.2 Nausea with vomiting, unspecified; R10.10 Upper abdominal pain, unspecified; K91.5 Postcholecystectomy syndrome; R62.7 Adult failure to thrive; R63.4 Abnormal weight loss; K27.9 Peptic ulcer, site unspecified, unspecified as acute or chronic, without hemorrhage or perforation
CPT/HCPCS: 99214

== ENCOUNTER → 2024-07-24 11:39 | Outpatient (BNVA) | payer OTHER, SELFPAY | PROVIDERS: PCP Internal Medicine; Visit Provider Nurse Practitioner | DX: K30 Functional dyspepsia (principal); K91.5 Postcholecystectomy syndrome; K27.9 Peptic ulcer, site unspecified, unspecified as acute or chronic, without hemorrhage or perforation; R11.2 Nausea with vomiting, unspecified; R10.10 Upper abdominal pain, unspecified; R62.7 Adult failure to thrive; R63.4 Abnormal weight loss | CPT/HCPCS: 99212 ==

== ENCOUNTER 2024-08-14 08:57 | Outpatient (AMB) | payer OTHER, SELFPAY ==
--- NOTE | 2024-08-14 08:58 | MHC.OFFVIS ---
Vital Signs 08/14/24 09:11 Height 5 ft 4 in Weight 127 lb BMI 21.8 BP 108/58 L Blood Pressure Location Rt brachial Position Sitting Pulse 102 H Pulse Source Pulse Oximeter Pulse Oximetry (%) 96 Oxygen Delivery Method Room Air Intake Visit Reasons: 3 weeks f/u N/V abd. pain Intake Note: ESTABLISHED PATIENT for mgmt of chronic abd pain. CC; Pt reports that she had been doing well since last visit while taking the pantoprazole; however, she unfortunately misplaced the med and will need a new Rx to replace it. Environmental Safety Specialist Required: Yes Environmental Safety Specialist Services: Environmental Safety Specialist Offered & Declined Accompanied by: Significant Other Allergies No Known Allergies Allergy (Verified 08/14/24 09:05) HPI HPI 3 weeks f/u N/V abd. 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 Then all fo the severe sx returned. She indeed has evidence of a lot of gastric injury with scarring - but biopsies seemed to show inactive and healing inflammation. So it seems that medications WERE working.... BUT with review of medicines, it seems that the omeprazole fell off of her list for refills. This would easily explain her relapse, as she likely has s/p maicol bile medicated PUD and gastritis. I will restart PPI on pantorapzole qd. She was taken off of the megace as it was interfering with her menses and hormones. Overall, she is still happy with how her tx id progressing as she went from 91# at start of tx to 127 today. They (she and her ) expressed gratitude for the work be done so far, and I think if we get her back on a PPI we will get her back to a manageable situation. She continues on her metoclopramide 10 mg 4 times a day. This was a very long visit because we had to go over all of test results and then back track over what might have caused her to have a sudden reoccurrence of symptoms that included a very thorough medication review. Of course we also had to educate her about the likely underlying cause which I believe may be bile gastritis leading to peptic ulcer disease since she is status post cholecystectomy. ROV 3 weeks. 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 Using the pantoprazole resolved the problems. BUT she lost her bottle of pill. Will increase to bid to get it to her then proceed. If this does not go through insurance will switch to another PPI. She can she continues on metoclopramide. ROV 8 weeks. [facility] Medical History Astigmatism Underweight Panic attacks Myopia Thyroid disease GERD (gastroesophageal reflux disease) Asthma Delayed gastric emptying Surgical History Hx of endoscopy History of tubal ligation History of section History of cholecystectomy Family History Maternal Grandmother Pancreatic cancer Paternal Grandmother Pancreatic cancer Diabetes Social History Alcohol intake: never Patient Tobacco Use Status: Never used Tobacco Review of Systems Const Denies fatigue, Denies fever(s), Denies night sweats, Denies poor appetite, Reports weight gain and Denies weight loss Eyes Details: glasses Reports requires corrective lenses ENT Reports Normal hearing present, Denies dental pain, Denies dysphagia, Denies hearing loss, Denies mouth pain, Denies odynophagia, Denies throat swelling, Denies tongue swelling and Reports other (Dentition adequate) Card Reports no additional complaints Resp Reports no additional complaints GI Details: Denies abdominal pain, Denies melena, Denies bloating, Denies hematochezia, Denies constipation, Denies GI cramping, Denies dysphagia, Denies excessive flatus, Denies early satiety, Reports heartburn, Denies diarrhea, Reports nausea, Denies odynophagia, Denies vomiting and Denies hematemesis Skin/Breast Denies pruritus, Denies lesions, Denies rash and Denies jaundice Neuro Reports Normal hearing present and Denies Abnormal speech present Endo Denies fatigue Aller/Immun Denies throat swelling and Denies tongue swelling Physical Exam Vital Signs: Last Vital Signs Pulse 102 H 08/14/24 09:11 BP 108/58 L 08/14/24 09:11 Pulse Ox 96 08/14/24 09:11 Oxygen Delivery Method Room Air 08/14/24 09:11 BMI result Body Mass Index 21.8 Const General: cooperative, no acute distress, well developed and well groomed Nutritional Appearance: average body habitus and well nourished Orientation/consciousness: oriented to person, oriented to place and oriented to time Limitations: language barrier HEENT Head: Yes normocephalic and Yes atraumatic Eyes General: appearance normal, both eyes and all related structures Pupils: Equal, round and reactive pupils present Neck Neck: Yes normal visual inspection and Yes no lymphadenopathy Thyroid: Thyroid normal Resp Effort & Inspection: normal respiratory effort and able to speak in complete sentences Auscultation: clear to auscultation bilaterally Cardio Rate: regular rate Rhythm: regular rhythm Heart sounds: Normal, physiologic split S2 sound present Peripheral pulses: radial pulses present and posterior tibial pulses present GI Inspection: No distended and No Abdominal panniculus present Palpation (GI): Soft to palpation, nontender, no guarding, not rigid and No hepatosplenomegaly present Percussion: Yes normal to percussion Auscultation: normal bowel sounds Rectal Exam - Female: deferred Skin General skin exam: no rashes or lesions noted, turgor normal, skin not dry, no jaundice, No spider nevi and no striae Rashes: no rashes Nails: normal Neuro General: oriented to person, oriented to place and oriented to time Cranial nerves: Yes Equal, round and reactive pupils present and Yes Normal hearing present Speech: No Abnormal speech present Extrem General: Yes normal to inspection, No clubbing, No cyanosis and No edema Psych Appearance: grossly normal and well kempt Mental Status: mental status grossly normal Speech and movement: Normal speech and movement present Affect: normal affect Attitude: cooperative Thought process: Normal thought process present and not confabulating Thought content: Normal thought content present Insight: Limited insight present (Psych) Judgement: Limited judgement present (Psych) Assessment & Plan Assessment & Plan (1) Peptic ulcer disease: Code(s): K27.9 - Peptic ulcer, site unspecified, unspecified as acute or chronic, without hemorrhage or perforation Category: Medical (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 Using the pantoprazole resolved the problems. BUT she lost her bottle of pill. Will increase to bid to get it to her then proceed. If this does not go through insurance will switch to another PPI. She can she continues on metoclopramide. ROV 8 weeks. 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, R10.10 - Upper abdominal pain, unspecified, R11.2 - Nausea with vomiting, unspecified, R62.7 - Adult failure to thrive, R63.4 - Abnormal weight loss To pantoprazole (Protonix) 40 mg PO BID 60 tabs 6RF 30 days K27.9 - Peptic ulcer, site unspecified, unspecified as acute or chronic, without hemorrhage or perforation, K30 - Functional dyspepsia, 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
--- OUTSIDE RECORDS SUMMARY | 2024-08-14 09:08 | XMS_ITS | Clinical Summary ---
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 75 mL 11 04/22/19 25 025 Active albuterol HFA (PROAIR HFA ; PROVENTIL HFA ; VENTOLIN HFA) 90 mcg/actuation inhalerIndicatio ns:Severe persistent asthma without complication (CMS/HCC V28) Inhale 2 puffs by mouth every 4 (four) hours if needed for wheezing. 36 g 3 04/22/19 25 Active umeclidinium (Incruse Ellipta) 62.5 mcg/actuation inhalationIndica tions:Severe persistent asthma without complication (CMS/HCC V28) Inhale 1 puff by mouth 1 (one) time each day. 3 each 4 04/30/19 25 026 Active fluticasone furoate-vilanter oL (Breo Ellipta) 200-25 mcg/dose inhalerIndicatio ns:Severe persistent asthma without complication (CMS/HCC V28) Inhale 1 puff by mouth 1 (one) time each day. 3 each 06/21/19 25 Active montelukast (SINGULAIR) 10 mg tabletIndication s:Severe persistent asthma without complication (CMS/HCC V28) Take 1 tablet (10 mg total) by mouth at bedtime. 90 each 06/21/19 25 026 Active metoclopramide (REGLAN) 10 mg tablet Take 1 tablet (10 mg total) by mouth 4 (four) times a day. Active loratadine (CLARITIN) 10 mg tablet Take 10 mg by mouth daily. Discontinu ed(Discont inued by another clinician) metoclopramide (REGLAN) 5 mg tablet Take 2 tablets (10 mg total) by mouth 4 (four) times a day. Discontinu ed(Discont inued by another clinician) Active Problems Problem Noted Date Diagnosed Date Chest pain 07/25/2023 Assessment & Plan (08/04/2024 11:08 AM EDT): Patient has a chronic history of episodes of chest discomfort. Description of her symptoms is consistent with atypical chest discomfort and reproducible to palpation. Previous exercise stress test in April 2023 did not show any ischemic ECG changes with exercise; however, the patient had a very poor functional capacity given that she was only able to exercise for 2 minutes and 53 seconds and she achieved only 76% of the maximum predicted heart rate. Echocardiogram done in May 2023 showed a low-normal LVEF at 50-55%, normal RV size and function, and mild MR. Given that she only has mild mitral valve insufficiency, this is unlikely to be a cause of her symptoms. She underwent CT of the chest 11/2023 which showed no acute thoracic pathology. I reviewed all of her results with her and provided her with reassurance. No further cardiac testing is needed at this time. Patient advised to call back if her symptoms worsen in any way. Will arrange for a 1 year follow-up with Dr. Deleon. Mitral regurgitation 03/28/2022 Overview (08/04/2024): Assessment & Plan (08/04/2024 11:08 AM EDT): The patient has a history of mild mitral valve insufficiency. Echocardiogram done in May 2023 also showed evidence of mild mitral valve insufficiency. Given the mitral valve insufficiency is mild in severity, this is unlikely to cause her any symptoms at this point. As such, the patient will continue with serial echocardiographic monitoring and I would recommend for her to undergo a follow-up echocardiogram in 3 to 5 years. Palpitations 08/04/2021 Overview (08/04/2024): Assessment & Plan (08/04/2024 11:08 AM EDT): The patient has a history of symptoms of palpitations. Symptoms are under good control at this time. Will continue her current beta-ricki therapy with metoprolol. Asthma 07/20/2021 Overview (02/20/2024): Last Assessment & Plan: We will start now Asmanex 200 mcg 1 puff twice a day. Technique has been explained. Continue with albuterol as needed but I advised her to do not use the albuterol as frequently given her history of palpitations. Resolved Problems Problem Noted Date Diagnosed Date Resolved Date Dizziness 04/25/2023 08/04/2024 Overview (02/20/2024): Last Assessment & Plan: The patient continues to have symptoms of positional dizziness. Will continue with plans for the patient to undergo a tilt table study at [facility] to rule out the presence of POTS versus orthostatic hypotension. Dyspnea 07/20/2021 08/04/2024 Overview (02/20/2024): Last Assessment & Plan: The patient has symptoms of chronic exertional dyspnea. She does have a history of bronchial asthma and is being evaluated by the [place] pulmonology department. Previous echocardiogram showed a normal biventricular function and only mild mitral valve insufficiency. The mild mitral valve insufficiency is not the cause of the patient's dyspnea given that the mitral valve insufficiency is only mild in nature. Given her persistent symptoms of exertional dyspnea, we will proceed with further testing with an exercise stress test. The exercise stress test will allow us to evaluate her exercise capacity and rule out any exercise-induced EKG changes including exercise-induced arrhythmias. On the other hand, we will also order a new echocardiogram to reevaluate her cardiac function. The patient was also instructed to continue to follow-up with the pulmonology department regarding the management of her bronchial asthma. Encounters Date Type Department Care Team Description 08/04/2024 10:10 AM EDT Office Visit [facility] [address] [place] [address] Veronica Watts NP Nonrheumatic mitral valve regurgitation (Primary Dx); Chest pain, unspecified type; Palpitations 06/20/2024 8:50 AM EDT [facility] [address] [place] [address] Sabina Valenzuela NP Severe persistent asthma without complication (CMS/[facility] V28) (Primary Dx); Dyspnea on exertion; Seasonal allergies; Mitral valve insufficiency, unspecified etiology from Last 3 Months Surgical History Surgery Date Site/Laterality Comments CHOLECYSTECTOMY PROCEDURE: HISTORICAL CHOLECYSTECTOMY SECTION PROCEDURE: HISTORICAL DELIVERY TUBAL LIGATION Bilateral PROCEDURE: HISTORICAL TUBAL LIGATION Medical History Medical History Date Comments Asthma DX:Asthma GERD (gastroesophageal reflux disease) DX:GERD (gastroesophageal reflux disease) Myopia DX:Myopia Astigmatism DX:Astigmatism Underweight DX:Underweight History of COVID-19 02/2021 DX:History o f COVID-19 SOB (shortness of breath) DX:SOB (shortness of breath) Panic disorder (episodic par oxysmal anxiety) DX:Panic disorder (episodic paroxysmal anxiety) Vomiting, unspecified DX:Vomitin g, unspecified Diarrhea, unspecified DX:Diarrhe a, unspecified Family History Medical History Relation Name Comments Mental illness Mother Diabetes Paternal Grandfather Hypertension Paternal Grandfather Diabetes Paternal Grandmother Hypertension Paternal Grandmother Relation Name Status Comments Mother Paternal Grandfather Paternal Grandmother Social History Tobacco Use Types Packs/Day Years Used Date Smoking Tobacco: Never Smokeless Tobacco: Never Tobacco Cessation:Counseling Given: Not Answered Alcohol Use Standard Drinks/Week Comments Never 0 (1 standard drink = 0.6 oz pur e alcohol) Comments Unknown Sex and Gender Information Value Date Recorded Sex Assigned at Not on file Legal Sex Female 2:14 AM EST Gender Identity Not on file Sexual Orientation Not on file Obstetrics History Last Filed Vital Signs Vital Sign Reading Time Taken Comments Blood Pressure 108/60 08/04/2024 10:21 AM EDT Pulse 68 08/04/2024 10:21 AM EDT Temperature 35.9 ??C (96.7 ??F) 06/20/2024 8:52 AM ED T Respiratory Rate 14 06/20/2024 8:52 AM EDT Oxygen Saturation 99% 08/04/2024 10:21 AM EDT Inhaled Oxygen Concentration - - Weight 58.3 kg (128 lb 8 oz) 08/04/2024 10:21 AM EDT Height 162.6 cm (5' 4 ) 08/04/2024 10:21 AM EDT Body Mass Index 22.06 08/04/2024 10:21 AM EDT Plan of Treatment Upcoming Encounters Date Type Department Care Team (Late st Contact Info) Description 09/10/2024 8:30 AM EDT Office Visit Pulmonolgy - [place] [address] [place] [address] Sabina Valenzuela NP [address] [place] [address] Health Maintenance Due Date Last Done Comments DTaP,Tdap,and Td Vaccines (1 - Tdap) 2012 Hepatitis B Vaccines (1 of 3 - 19+ 3-dose series) 2012 Pneumococcal Vaccine: Pediat rics (0 to 5 Years) and At-Risk Patients (6 to 64 Years) (1 of 2 - PCV) 2012 Cervical Cancer Screening: P ap Smear 2014 Depression Screening 02/26/2022 HIV Screening 02/26/2022 Hepatitis C Screening 02/26/2022 Social Influencers of Health Screening 02/26/2022 COVID-19 Vaccine (1 - 2023-2 5 season) 2023 Influenza Vaccine Completed 02/07/2024 HIB Vaccines Aged Out No longer eligi ble based on patient's age to complete this topic HPV Vaccines Aged Out No longer eligi ble based on patient's age to complete this topic Hepatitis A Vaccines Aged Out No long er eligible based on patient's age to complete this topic IPV Vaccines Aged Out No longer eligi ble based on patient's age to complete this topic MMR Vaccines Aged Out No longer eligi ble based on patient's age to complete this topic Meningococcal ACWY Vaccine Aged Out N o longer eligible based on patient's age to complete this topic Meningococcal B Vaccine Aged Out No l onger eligible based on patient's age to complete this topic RSV Immunization Patients Un russell 20 months Aged Out No longer eligible b ased on patient's age to complete this topic Varicella Vaccines Aged Out No longer eligible based on patient's age to complete this topic Procedures Procedure Name Priority Date/Time Associated Diagnosis Comments ECG 12-LEAD Routine 08/04/2024 11:08 AM EDT Nonrheumatic mitral valve regurgitation from Last 3 Months Results * ECG 12 lead (08/04/2024 11:08 AM EDT) Ventricular Rate ECG 67 BPM GEMUSE Atrial Rate 67 BPM GEMUSE P-R Interval 184 ms GEMUSE QRS Duration 110 ms GEMUSE Q-T Interval 402 ms GEMUSE QTc 424 ms GEMUSE P Wave [place] 75 degrees GEMUSE R [place] -64 degrees GEMUSE T [place] 79 degrees GEMUSE ECG Interpretation Normal sinus rhythm Possible Left atrial enlargement Incomplete right bundle branch block Left anterior fascicular block Abnormal ECG When compared with ECG of 20-MAY-2022 14:17, Vent. rate has decreased BY ??44 BPM Confirmed by JIAN TOVAR ([id number]) on 08/05/2024 8:26:38 AM GEMUSE 08/04/2024 10:3 5 AM EDT 08/05/2024 8:26 AM EDT us Veronica Watts NP ECG ORDERABLES Edited Resul t - Final GEMUSE from Last 3 Months Insurance * Guarantor: Jeffery Harris Account Type Relation to Patient Date of Phone Billing Address Personal/Family Self [address] [place] [address] [facility] Care Teams Binding Machine Operator Relationship Specialty Start Date End Date Ronda Frederick MD [address] [facility] [address] [place], [place] PCP - General Internal Medicine 10/27/20
[2024-08-14 09:11] VITALS: BP 108/58; PULSE 102; O2SAT 96; BMI 21.8
== END 2024-08-14 09:31 | disposition home or self-care (01) ==
LOC: HO.HGI 08:58
PROVIDERS: PCP Internal Medicine; Visit Provider Nurse Practitioner
DX: K27.9 Peptic ulcer, site unspecified, unspecified as acute or chronic, without hemorrhage or perforation (principal); K91.5 Postcholecystectomy syndrome; R10.10 Upper abdominal pain, unspecified
CPT/HCPCS: 99213

== ENCOUNTER → 2024-08-14 08:57 | Outpatient (BNVA) | payer OTHER, SELFPAY | PROVIDERS: PCP Internal Medicine; Visit Provider Nurse Practitioner | DX: K27.9 Peptic ulcer, site unspecified, unspecified as acute or chronic, without hemorrhage or perforation (principal); K91.5 Postcholecystectomy syndrome; R10.10 Upper abdominal pain, unspecified | CPT/HCPCS: 99212 ==

== ENCOUNTER 2024-10-15 09:17 | Outpatient (AMB) | payer OTHER, SELFPAY ==
--- NOTE | 2024-10-15 09:19 | MHC.OFFVIS ---
Vital Signs 10/15/24 09:20 Height 5 ft 4 in Weight 123 lb 7.342 oz BMI 21.2 BP 100/68 Blood Pressure Location Lt brachial Position Sitting Pulse 74 Intake Visit Reasons: 8 weeks PUD, paresis Intake Note: Jeffery returns to in office follow up of PUD and paresis. CC: Patient reports that since last month she began to vomit and loose weight again. 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 Using the pantoprazole resolved the problems. BUT she lost her bottle of pill. Will increase to bid to get it to her then proceed. If this does not go through insurance will switch to another PPI. She can she continues on metoclopramide. ROV 8 weeks. 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, R10.10 - Upper abdominal pain, unspecified, R11.2 - Nausea with vomiting, unspecified, R62.7 - Adult failure to thrive, R63.4 - Abnormal weight loss To pantoprazole (Protonix) 40 mg PO BID 60 tabs 6RF 30 days K27.9 - Peptic ulcer, site unspecified, unspecified as acute or chronic, without hemorrhage or perforation, K30 - Functional dyspepsia, K91.5 - Postcholecystectomy syndrome, R10.10 - Upper abdominal pain, unspecified, R11.2 - Nausea with vomiting, unspecified, R62.7 - Adult failure to thrive, R63.4 - Abnormal weight loss TODAYS VISIT Serbian #Nhi Cochran and Shana She suddenly developed a 3 day episode of severe vomiting. Since then she has had no appetite. She has been losing weight again which is quite concerning to her. She can not identify and a preceding medication changes, suspicious food eaten, sick contacts preceding this episode. She is status post cholecystectomy but did not indulge in a particularly fatty meal. She may have had some anxiety preceding this but certainly no catastrophic event. Because of her history of peptic ulcer disease on the last endoscopy I believe this might be bile mediated gastritis. In the past we had her on Carafate but on a much higher dose and it seem to cause her upper abdominal pain. This may have been due to constipation. I think we need to restart this but at a lower dose of 1 tablet once a day. She continues on metoclopramide 10 mg 4 times a day and is taking her pantoprazole once a day, although I prescribed it twice a day to make sure she does not run out. Return office visit in 4 weeks, she is asking for a medicine to gain weight, but we have to get her past the N/V first. [facility] Medical History (Updated 10/15/24 @ 10:22 by HETAL Young) Astigmatism Underweight Panic attacks Myopia Thyroid disease GERD (gastroesophageal reflux disease) Asthma Delayed gastric emptying Surgical History Hx of endoscopy History of tubal ligation History of section History of cholecystectomy Family History Maternal Grandmother Pancreatic cancer Paternal Grandmother Pancreatic cancer Diabetes Social History Alcohol intake: never Patient Tobacco Use Status: Never used Tobacco Review of Systems Const Denies fatigue, Denies fever(s), Denies night sweats, Reports poor appetite and Reports weight loss Eyes Details: glasses Reports requires corrective lenses ENT Reports Normal hearing present, Denies dental pain, Denies dysphagia, Denies hearing loss, Denies mouth pain, Denies odynophagia, Denies throat swelling, Denies tongue swelling and Reports other (Dentition adequate) Card Reports no additional complaints Resp Reports no additional complaints GI Details: Denies abdominal pain, Denies melena, Denies bloating, Denies hematochezia, Denies constipation, Denies GI cramping, Denies dysphagia, Denies excessive flatus, Denies early satiety, Denies heartburn, Denies diarrhea, Reports nausea, Denies odynophagia, Reports vomiting and Denies hematemesis Skin/Breast Denies pruritus, Denies lesions, Denies rash and Denies jaundice Neuro Reports Normal hearing present and Denies Abnormal speech present Psych Reports anxiety Endo Denies fatigue Aller/Immun Denies throat swelling and Denies tongue swelling Physical Exam Vital Signs: Last Vital Signs Pulse 74 10/15/24 09:20 BP 100/68 10/15/24 09:20 BMI result Body Mass Index 21.2 Const General: cooperative, no acute distress, well developed and well groomed Nutritional Appearance: average body habitus and well nourished Orientation/consciousness: oriented to person, oriented to place and oriented to time Limitations: language barrier HEENT Head: Yes normocephalic and Yes atraumatic Eyes General: appearance normal, both eyes and all related structures Pupils: Equal, round and reactive pupils present Neck Neck: Yes normal visual inspection and Yes no lymphadenopathy Thyroid: Thyroid normal Resp Effort & Inspection: normal respiratory effort and able to speak in complete sentences Auscultation: clear to auscultation bilaterally Cardio Rate: regular rate Rhythm: regular rhythm Heart sounds: Normal, physiologic split S2 sound present Peripheral pulses: radial pulses present and posterior tibial pulses present GI Inspection: No distended and No Abdominal panniculus present Palpation (GI): Soft to palpation, nontender, no guarding, not rigid and No hepatosplenomegaly present Percussion: Yes normal to percussion Auscultation: normal bowel sounds Rectal Exam - Female: deferred Skin General skin exam: no rashes or lesions noted, turgor normal, skin not dry, no jaundice, No spider nevi and no striae Rashes: no rashes Nails: normal Neuro General: oriented to person, oriented to place and oriented to time Cranial nerves: Yes Equal, round and reactive pupils present and Yes Normal hearing present Speech: No Abnormal speech present Extrem General: Yes normal to inspection, No clubbing, No cyanosis and No edema Psych Appearance: grossly normal and well kempt Mental Status: mental status grossly normal Speech and movement: Normal speech and movement present Affect: normal affect Attitude: cooperative Thought process: Normal thought process present and not confabulating Thought content: Normal thought content present Insight: Limited insight present (Psych) Judgement: Limited judgement present (Psych) Assessment & Plan Assessment & Plan (1) Nausea and vomiting: Code(s): R11.2 - Nausea with vomiting, unspecified Category: Medical (2) Weight loss, abnormal: Code(s): R63.4 - Abnormal weight loss Category: Medical (3) Peptic ulcer disease: Code(s): K27.9 - Peptic ulcer, site unspecified, unspecified as acute or chronic, without hemorrhage or perforation Category: Medical (4) Post-cholecystectomy syndrome: Code(s): K91.5 - Postcholecystectomy syndrome Category: Medical (5) Delayed gastric emptying: Code(s): K30 - Functional dyspepsia Category: Medical (6) Failure to thrive in adult: Code(s): R62.7 - Adult failure to thrive Category: Medical Plan Serbian #Nhi Brownlee She suddenly developed a 3 day episode of severe vomiting. Since then she has had no appetite. She has been losing weight again which is quite concerning to her. She can not identify and a preceding medication changes, suspicious food eaten, sick contacts preceding this episode. She is status post cholecystectomy but did not indulge in a particularly fatty meal. She may have had some anxiety preceding this but certainly no catastrophic event. Because of her history of peptic ulcer disease on the last endoscopy I believe this might be bile mediated gastritis. In the past we had her on Carafate but on a much higher dose and it seem to cause her upper abdominal pain. This may have been due to constipation. I think we need to restart this but at a lower dose of 1 tablet once a day. She continues on metoclopramide 10 mg 4 times a day and is taking her pantoprazole once a day, although I prescribed it twice a day to make sure she does not run out. Return office visit in 4 weeks, she is asking for a medicine to gain weight, but we have to get her past the N/V first. Medications: New sucralfate (Carafate) 1 g PO QNOON 30 tabs 3RF K27.9 - Peptic ulcer, site unspecified, unspecified as acute or chronic, without hemorrhage or perforation, K91.5 - Postcholecystectomy syndrome Coding Level of Care Code Est Pt Level 3 (23363) Diagnoses Nausea and vomiting R11.2 Weight loss, abnormal R63.4 Peptic ulcer disease K27.9 Post-cholecystectomy syndrome K91.5 Delayed gastric emptying K30 Failure to thrive in adult R62.7
[2024-10-15 09:20] VITALS: BP 100/68; PULSE 74; BMI 21.2
--- OUTSIDE RECORDS SUMMARY | 2024-10-15 09:48 | XMS_ITS | Clinical Summary ---
Author Organization 175 [facility] Address [address] [place] [address] Phone Care Team Providers Care Financial Planning Consultant Name Role Phone Ronda Frederick MD Primary Care Provider [phone] Allergies No known active allergies Medications metoprolol succinate (TOPROL-XL) 25 mg 24 hr tablet TAKE 1/2 TABLET BY MOUTH DAILY FOR 360 DAYS 45 tablet 2 04/07/19 25 Active albuterol 2.5 mg /3 mL (0.083 %) nebulizer solutionIndicat ions:Severe persistent asthma without complication (CMS/HCC V28) Take 3 mL (2.5 mg total) by nebulization every 4 (four) hours if needed for wheezing. 75 mL 11 04/22/19 25 2024 Active umeclidinium (Incruse Ellipta) 62.5 mcg/actuation inhalationIndic ations:Severe persistent asthma without complication (CMS/HCC V28) Inhale 1 puff by mouth 1 (one) time each day. 3 each 4 04/30/19 25 2025 Active montelukast (SINGULAIR) 10 mg tabletIndicatio ns:Severe persistent asthma without complication (CMS/HCC V28) Take 1 tablet (10 mg total) by mouth at bedtime. 90 each 06/21/19 25 2025 Active metoclopramide (REGLAN) 10 mg tablet Take 1 tablet (10 mg total) by mouth 4 (four) times a day. Active fluticasone furoate-vilante roL (Breo Ellipta) 200-25 mcg/dose inhalerIndicati ons:Severe persistent asthma without complication (CMS/HCC V28) INHALE 1 PUFF BY MOUTH 1 (ONE) TIME EACH DAY. 180 each 3 09/18/19 25 Active Ventolin HFA 90 mcg/actuation inhalerIndicati ons:Severe persistent asthma without complication (CMS/HCC V28) INHALE 2 PUFFS BY MOUTH EVERY 4 (FOUR) HOURS IF NEEDED FOR WHEEZING. 36 each 3 09/24/19 25 Active albuterol HFA (PROAIR HFA ; PROVENTIL HFA ; VENTOLIN HFA) 90 mcg/actuation inhalerIndicati ons:Severe persistent asthma without complication (CMS/HCC V28) Inhale 2 puffs by mouth every 4 (four) hours if needed for wheezing. 36 g 3 04/22/19 25 2024 Discontinued fluticasone furoate-vilante roL (Breo Ellipta) 200-25 mcg/dose inhalerIndicati ons:Severe persistent asthma without complication (CMS/HCC V28) Inhale 1 puff by mouth 1 (one) time each day. 3 each 06/21/19 25 2024 Discontinued Active Problems Problem Noted Date Diagnosed Date [...] to undergo a tilt table study at [facility] to rule out the presence of POTS versus orthostatic hypotension. Dyspnea 07/20/2021 08/04/2024 Overview (02/20/2024): Last Assessment & Plan: The patient has symptoms of chronic exertional dyspnea. She does have a history of bronchial asthma and is being evaluated by the [place] pulmonology department. Previous echocardiogram showed a normal [...] Description 08/04/2024 10:10 AM EDT Office Visit [facility] [address] [place] [address] Veronica Watts NP Nonrheumatic mitral valve regurgitation (Primary Dx); Chest pain, unspecified type; Palpitations from Last 3 Months Surgical History Surgery [...] 68 08/04/2024 10:21 AM EDT Temperature 35.9 C (96.7 F) 06/20/2024 8:52 AM EDT Respiratory Rate 14 06/20/2024 8:52 AM EDT Oxygen Saturation 99% 08/04/2024 10:21 AM EDT Inhaled Oxygen Concentration - - Weight 58.3 kg (128 lb 8 oz) 08/04/2024 10:21 AM EDT Height 162.6 cm (5' 4 ) 08/04/2024 10:21 AM EDT Body Mass Index 22.06 08/04/2024 10:21 AM EDT Plan of Treatment Upcoming Encounters Date Type Department Care Team ([facility] st Contact Info) Description 12/12/2024 11:25 AM EDT Office Visit Pulmonolgy - [place] [address] [facility] [address] [place] [address] Sabina Valenzuela NP [address] [facility] [place] [address] [place] [address] Health Maintenance Due Date Last Done Comments DTaP,Tdap,and Td Vaccines (1 - Tdap) 2012 Hepatitis B Vaccines (1 of 3 - 19+ 3-dose series) 2012 Pneumococcal Vaccine: Pediat rics (0 to 5 Years) and At-Risk Patients (6 to 49 Years) (1 of 2 - PCV) 2012 Cervical Cancer Screening: P ap Smear 2014 HIV Screening 02/26/2022 Hepatitis C Screening 02/26/2022 Social Influencers of Health Screening 02/26/2022 COVID-19 Vaccine (1 - 2023-2 5 season) 2023 Depression Screening 03/26/2024 Influenza Vaccine (#1) 2024 02/07/2024 HIB Vaccines Aged Out No longer [...] GEMUSE QTc 424 ms GEMUSE P Wave [place] 75 degrees GEMUSE R [place] -64 degrees GEMUSE T [place] 79 degrees GEMUSE ECG Interpretation Normal sinus rhythm Possible Left atrial enlargement Incomplete right bundle branch block Left anterior fascicular block Abnormal ECG When compared with ECG of 20-MAY-2022 14:17, Vent. rate has decreased BY 44 BPM Confirmed by JIAN TOVAR ([id number]) on 08/05/2024 8:26:38 AM GEMUSE 08/04/2024 10:3 5 AM EDT 08/05/2024 8:26 AM EDT us Veronica Watts [employer] ECG ORDERABLES Edited Resul t - Final GEMUSE from Last [address] [address] [place] [address] Care Teams Financial Planning Consultant Relationship Specialty Start Date End Date Ronda Frederick MD [address] PCP - General Internal Medicine 10/27/20
== END 2024-10-15 10:24 | disposition home or self-care (01) ==
LOC: HO.HGI 09:17
PROVIDERS: PCP Internal Medicine; Visit Provider Nurse Practitioner
DX: R11.2 Nausea with vomiting, unspecified (principal); R63.4 Abnormal weight loss; K27.9 Peptic ulcer, site unspecified, unspecified as acute or chronic, without hemorrhage or perforation; K91.5 Postcholecystectomy syndrome; K30 Functional dyspepsia; R62.7 Adult failure to thrive
CPT/HCPCS: 99213

== ENCOUNTER → 2024-10-15 09:17 | Outpatient (BNVA) | payer OTHER, SELFPAY | PROVIDERS: PCP Internal Medicine; Visit Provider Nurse Practitioner | DX: K91.5 Postcholecystectomy syndrome (principal); K27.9 Peptic ulcer, site unspecified, unspecified as acute or chronic, without hemorrhage or perforation; R10.10 Upper abdominal pain, unspecified | CPT/HCPCS: 99212 ==

== ENCOUNTER 2024-11-18 09:24 | Outpatient (AMB) | payer OTHER, SELFPAY ==
[2024-11-18 09:27] VITALS: BP 104/59; PULSE 71; BMI 20.4
--- NOTE | 2024-11-18 09:27 | A.OFFVIS_ITS ---
Vital Signs 11/18/24 09:27 Height 5 ft 4 in Weight 119 lb 0.794 oz BMI 20.4 BP 104/59 L Blood Pressure Location Lt brachial Position Sitting Pulse 71 Intake Visit Reasons: 4 wks f/u Intake Note: Jeffery presents in the office as a 4 week follow up. CC: She states that she is still having nausea and this week she has been having vomiting. 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 Since then she has had no appetite. She has been losing weight again which is quite concerning to her. She can not identify and a preceding medication changes, suspicious food eaten, sick contacts preceding this episode. She is status post cholecystectomy but did not indulge in a particularly fatty meal. She may have had some anxiety preceding this but certainly no catastrophic event. Because of her history of peptic ulcer disease on the last endoscopy I believe this might be bile mediated gastritis. In the past we had her on Carafate but on a much higher dose and it seem to cause her upper abdominal pain. This may have been due to constipation. I think we need to restart this but at a lower dose of 1 tablet once a day. She continues on metoclopramide 10 mg 4 times a day and is taking her pantoprazole once a day, although I prescribed it twice a day to make sure she does not run out. Return office visit in 4 weeks, she is asking for a medicine to gain weight, but we have to get her past the N/V first. Medications: New sucralfate (Carafate) 1 g PO QNOON 30 tabs 3RF K27.9 - Peptic ulcer, site unspecified, unspecified as acute or chronic, without hemorrhage or perforation, K91.5 - Postcholecystectomy syndrome TODAY'S VISIT Amharic Vinnie Cochran [facility] Medical History Astigmatism Underweight Panic attacks Myopia Thyroid disease GERD (gastroesophageal reflux disease) Asthma Delayed gastric emptying Surgical History Hx of endoscopy History of tubal ligation History of section History of cholecystectomy Family History Maternal Grandmother Pancreatic cancer Paternal Grandmother Pancreatic cancer Diabetes Social History Alcohol intake: never Patient Tobacco Use Status: Never used Tobacco Review of Systems Const Denies fatigue, Denies fever(s), Denies night sweats, Reports poor appetite and Reports weight loss Eyes Details: glasses Reports requires corrective lenses ENT Reports Normal hearing present, Denies dental pain, Denies dysphagia, Denies hearing loss, Denies mouth pain, Denies odynophagia, Denies throat swelling, Denies tongue swelling and Reports other (Dentition adequate) Card Reports no additional complaints Resp Reports no additional complaints GI Details: Reports abdominal pain, Denies melena, Denies bloating, Denies hematochezia, Denies constipation, Denies GI cramping, Denies dysphagia, Denies excessive flatus, Denies early satiety, Reports heartburn, Denies diarrhea, Reports nausea, Denies odynophagia, Reports vomiting and Denies hematemesis Skin/Breast Denies pruritus, Denies lesions, Denies rash and Denies jaundice Neuro Reports Normal hearing present and Denies Abnormal speech present Endo Denies fatigue Aller/Immun Denies throat swelling and Denies tongue swelling Physical Exam Vital Signs: Last Vital Signs Pulse 71 11/18/24 09:27 BP 104/59 L 11/18/24 09:27 BMI result Body Mass Index 20.4 Const General: cooperative, no acute distress, well developed and well groomed Nutritional Appearance: average body habitus and well nourished Orientation/consciousness: oriented to person, oriented to place and oriented to time Limitations: language barrier HEENT Head: Yes normocephalic and Yes atraumatic Eyes General: appearance normal, both eyes and all related structures Pupils: Equal, round and reactive pupils present Neck Neck: Yes normal visual inspection and Yes no lymphadenopathy Thyroid: Thyroid normal Resp Effort & Inspection: normal respiratory effort and able to speak in complete sentences Auscultation: clear to auscultation bilaterally Cardio Rate: regular rate Rhythm: regular rhythm Heart sounds: Normal, physiologic split S2 sound present Peripheral pulses: radial pulses present and posterior tibial pulses present GI Inspection: No distended and No Abdominal panniculus present Palpation (GI): Soft to palpation, nontender, no guarding, not rigid and No hepatosplenomegaly present Percussion: Yes normal to percussion Auscultation: normal bowel sounds Rectal Exam - Female: deferred Skin General skin exam: no rashes or lesions noted, turgor normal, skin not dry, no jaundice, No spider nevi and no striae Rashes: no rashes Nails: normal Neuro General: oriented to person, oriented to place and oriented to time Cranial nerves: Yes Equal, round and reactive pupils present and Yes Normal hearing present Speech: No Abnormal speech present Extrem General: Yes normal to inspection, No clubbing, No cyanosis and No edema Psych Appearance: grossly normal and well kempt Mental Status: mental status grossly normal Speech and movement: Normal speech and movement present Affect: normal affect Attitude: cooperative Thought process: Normal thought process present and not confabulating Thought content: Normal thought content present Insight: Limited insight present (Psych) Judgement: Limited judgement present (Psych) Assessment & Plan Assessment & Plan (1) Post-cholecystectomy syndrome: Code(s): K91.5 - Postcholecystectomy syndrome Category: Medical (2) Delayed gastric emptying: Code(s): K30 - Functional dyspepsia Category: Medical (3) Nausea and vomiting: Code(s): R11.2 - Nausea with vomiting, unspecified Category: Medical (4) Peptic ulcer disease: Code(s): K27.9 - Peptic ulcer, site unspecified, unspecified as acute or chronic, without hemorrhage or perforation Category: Medical (5) Upper abdominal pain: Code(s): R10.10 - Upper abdominal pain, unspecified Category: Medical (6) Failure to thrive in adult: Code(s): R62.7 - Adult failure to thrive Category: Medical (7) Weight loss, abnormal: Code(s): R63.4 - Abnormal weight loss Category: Medical Plan - The patient is a 29-year-old female presenting with chronic nausea and vomiting. - Persistent nausea and vomiting despite current medication regimen of metoclopramide four times daily and initially taking pantoprazole once daily. - Re-initiation of sucrophate did not alleviate symptoms, with vomitus averaging three times daily and constant nausea. - Prior assessments include endoscopic evaluation in June 2023 revealing gastric ulcer and gastric emptying study in April 2023 confirming gastroparesis. - Dietary intake is compromised with soft stools noted, possibly related to ongoing medication use. - Notable weight reduction from 127 pounds in July to 119 pounds, indicating possible nutritional deficits. - Patient denies any new-trigger events, maintaining consistency in dietary and medicinal habits. - Continue taking metoclopramide four times a day. - Increase pantoprazole to twice daily. - as her last endoscopy Has son suggest you consider a duplex ultrasound for SMA I will order this. - Monitor and report any significant dietary intake or further weight loss. - Follow-up in two weeks for test results and progress review. - Contact the office immediately if symptoms significantly worsen. Depending on the results of the labs I may need to have her see 1 of the physicians for a 2nd opinion since I am running out of ideas as to why her condition is worsening. The only time she gained weight it seems was when I had her on Megace, but this screwed up her menstrual period and of course this is not a good long-term strategy given the potential suppression of the adrenal/pituitary axis. Orders: Orders Comprehensive Met. Panel Today K27.9 - Peptic ulcer, site unspecified, unspecified as acute or chronic, without hemorrhage or perforation, R10.10 - Upper abdominal pain, unspecified, R11.2 - Nausea with vomiting, unspecified TSH reflex Free T4 Today K27.9 - Peptic ulcer, site unspecified, unspecified as acute or chronic, without hemorrhage or perforation, R10.10 - Upper abdominal pain, unspecified, R11.2 - Nausea with vomiting, unspecified US SMA Today K27.9 - Peptic ulcer, site unspecified, unspecified as acute or chronic, without hemorrhage or perforation, R10.10 - Upper abdominal pain, unspecified, R11.2 - Nausea with vomiting, unspecified Amylase Today K27.9 - Peptic ulcer, site unspecified, unspecified as acute or chronic, without hemorrhage or perforation, R10.10 - Upper abdominal pain, unspecified, R11.2 - Nausea with vomiting, unspecified Lipase Today K27.9 - Peptic ulcer, site unspecified, unspecified as acute or chronic, without hemorrhage or perforation, R10.10 - Upper abdominal pain, unspecified, R11.2 - Nausea with vomiting, unspecified UA CC w/rflx Micro + Cult Today K27.9 - Peptic ulcer, site unspecified, unspecified as acute or chronic, without hemorrhage or perforation, R10.10 - Upper abdominal pain, unspecified, R11.2 - Nausea with vomiting, unspecified Complete Blood Count Auto Diff Today K27.9 - Peptic ulcer, site unspecified, unspecified as acute or chronic, without hemorrhage or perforation, R10.10 - Upper abdominal pain, unspecified, R11.2 - Nausea with vomiting, unspecified Medications: Refilled metoclopramide HCl (Reglan) 10 mg PO QIDACHS 120 tabs 6RF K30 - Functional dyspepsia, R11.2 - Nausea with vomiting, unspecified sucralfate (Carafate) 1 g PO QNOON 30 tabs 3RF K27.9 - Peptic ulcer, site unspecified, unspecified as acute or chronic, without hemorrhage or perforation, K91.5 - Postcholecystectomy syndrome pantoprazole (Protonix) 40 mg PO BID 60 tabs 6RF 30 days K27.9 - Peptic ulcer, site unspecified, unspecified as acute or chronic, without hemorrhage or perforation, K30 - Functional dyspepsia, K91.5 - Postcholecystectomy syndrome, R10.10 - Upper abdominal pain, unspecified, R11.2 - Nausea with vomiting, unspecified, R62.7 - Adult failure to thrive, R63.4 - Abnormal weight loss Coding Level of Care Code Est Pt Level 4 (60455) Diagnoses Post-cholecystectomy syndrome K91.5 Delayed gastric emptying K30 Nausea and vomiting R11.2 Peptic ulcer disease K27.9 Upper abdominal pain R10.10 Failure to thrive in adult R62.7 Weight loss, abnormal R63.4 Time Spent (min) 37
--- OUTSIDE RECORDS SUMMARY | 2024-11-18 09:57 | XMS_ITS | Clinical Summary ---
Author Organization 175 [facility] Address [address] [place] [address] Phone Care Team Providers Care Field Mechanical Meter Tester Name Role Phone Ronda Frederick MD Primary Care Provider [phone] Allergies No known active allergies Medications metoprolol succinate (TOPROL-XL) 25 mg 24 hr tablet TAKE 1/2 TABLET BY MOUTH DAILY FOR 360 DAYS 45 tablet 2 5 Active albuterol 2.5 mg /3 mL (0.083 %) nebulizer solutionIndicati ons:Severe persistent asthma without complication (CMS/HCC V28) Take 3 mL (2.5 mg total) by nebulization every 4 (four) hours if needed for wheezing. 75 mL 11 5 Active umeclidinium (Incruse Ellipta) 62.5 mcg/actuation inhalationIndica tions:Severe persistent asthma without complication (CMS/HCC V28) Inhale 1 puff by mouth 1 (one) time each day. 3 each 4 5 026 Active montelukast (SINGULAIR) 10 mg tabletIndication s:Severe persistent asthma without complication (CMS/HCC V28) Take 1 tablet (10 mg total) by mouth at bedtime. 90 each 5 026 Active metoclopramide (REGLAN) 10 mg tablet Take 1 tablet (10 mg total) by mouth 4 (four) times a day. Active fluticasone furoate-vilanter oL (Breo Ellipta) 200-25 mcg/dose inhalerIndicatio ns:Severe persistent asthma without complication (CMS/HCC V28) INHALE 1 PUFF BY MOUTH 1 (ONE) TIME EACH DAY. 180 each 3 5 Active Ventolin HFA 90 mcg/actuation inhalerIndicatio ns:Severe persistent asthma without complication (CMS/HCC V28) INHALE 2 PUFFS BY MOUTH EVERY 4 (FOUR) HOURS IF NEEDED FOR WHEEZING. 36 each 3 5 Active Active Problems Problem Noted Date Diagnosed Date [...] to undergo a tilt table study at [facility] to rule out the presence of POTS versus orthostatic hypotension. Dyspnea 07/20/2021 08/04/2024 Overview (02/20/2024): Last Assessment & Plan: The patient has symptoms of chronic exertional dyspnea. She does have a history of bronchial asthma and is being evaluated by the [place] pulmonology department. Previous echocardiogram showed a normal [...] regarding the management of her bronchial asthma. Surgical History Surgery Date Site/Laterality Comments CHOLECYSTECTOMY [...] Care Team (Late st Contact Info) Description 12/12/2024 11:25 AM EDT Office Visit Pulmonolgy - [address] [place] [address] Sabina Valenzuela NP [address] [place] [phone] Health Maintenance Due Date Last Done Comments [...] on patient's age to complete this topic [place] [address] [place] [address] HEALTH PLAN Care Teams Field Mechanical Meter Tester Relationship Specialty Start Date End Date Ronda Frederick MD [address] [facility] [address] [place], [place] PCP - General Internal Medicine 10/27/20
== END 2024-11-18 10:54 | disposition home or self-care (01) ==
LOC: HO.HGI 09:24
PROVIDERS: PCP Internal Medicine; Visit Provider Nurse Practitioner
DX: K91.5 Postcholecystectomy syndrome (principal); K30 Functional dyspepsia; R11.2 Nausea with vomiting, unspecified; K27.9 Peptic ulcer, site unspecified, unspecified as acute or chronic, without hemorrhage or perforation; R10.10 Upper abdominal pain, unspecified; R62.7 Adult failure to thrive; R63.4 Abnormal weight loss
CPT/HCPCS: 99214

== ENCOUNTER 2024-11-18 09:24 | Outpatient (REF) | payer OTHER, SELFPAY ==
[2024-11-18 11:18] LABS: MANUAL DIFF FLAG NO
[2024-11-18 11:30] LABS: Hematocrit 39.1 % (37.0-47.0); Hemoglobin 12.8 g/dl (12.0-16.0); Imm Gran Abs Auto 0.02 X10*3/uL (0.00-0.03); Imm Gran Pct Auto 0.4 % (0.0-0.4); Lymphocytes Absolute Auto 1.9 X10*3/uL (1.2-4.9); Mean Corpuscular HGB Conc 32.7 g/dl (31.0-35.0); Mean Corpuscular Hemoglobin 30.2 pg (27.0-33.0); Mean Corpuscular Volume 92.2 fL (80.0-98.0); NRBC Abs Auto 0.000 X10*3/uL (0.0-0.012); NRBC Pct Auto 0.0 /100WBC (0.0-0.2); Platelet Count 241 X10*3/uL (160-400); Red Blood Count 4.24 X10*6/uL (4.20-5.50); White Blood Count 5.4 X10*3/uL (4.8-10.8)
[2024-11-18 11:36] LABS: Appearance Urine Clear; Glucose Urine UA Negative (Negative); PH 7.5 (5.0-9.0); Specific Gravity - Urine 1.015 (1.005-1.025)
[2024-11-18 12:24] LABS: Alanine Aminotransferase 14 U/L (0-31); Albumin Level 4.5 g/dL (3.5-5.0); Alkaline Phosphatase 57 U/L (39-117); Amylase 64 U/L (28-100); Anion Gap 10 (12-20); Aspartate Amino Transferase 20 U/L (5-31); Blood Urea Nitrogen 11 mg/dL (9-16); Calcium 9.7 mg/dL (8.4-10.2); Carbon Dioxide 27 mmol/L (22-29); Chloride 105 mmol/L (96-108); Estimated Glomerular Filt Rate > 60; Lipase 18 U/L (8-78); Potassium 4.4 mmol/L (3.3-5.1); Sodium 138 mmol/L (135-145); Total Protein 7.8 g/dL (6.5-8.0)
== END 2024-11-18 09:25 | disposition home or self-care (01) ==
LOC: HO.LAB 09:24
PROVIDERS: PCP Internal Medicine; Visit Provider Nurse Practitioner
DX: K27.9 Peptic ulcer, site unspecified, unspecified as acute or chronic, without hemorrhage or perforation (principal); K91.5 Postcholecystectomy syndrome; K30 Functional dyspepsia; R11.2 Nausea with vomiting, unspecified; R10.10 Upper abdominal pain, unspecified; R62.7 Adult failure to thrive; R63.4 Abnormal weight loss; Z79.899 Other long term (current) drug therapy
CPT/HCPCS: 36415; 80053; 81003; 82150; 83690; 84443; 85025; 99212

== ENCOUNTER 2024-12-05 08:49 | Outpatient (AMB) | payer OTHER, SELFPAY ==
--- NOTE | 2024-12-05 09:03 | MHC.OFFVIS ---
Vital Signs 12/05/24 09:14 Height 5 ft 4 in Weight 116 lb 13.52 oz BMI 20.1 BP 115/72 Blood Pressure Location Lt brachial Position Sitting Pulse 68 Intake Visit Reasons: f/u labs Intake Note: Jeffery presents in office today in follow up for lab results. CC: Patient c/o waking up with nausea, poor appetite, weight loss. She states that she vomited last Sunday, and c/o left sided abdominal tenderness and pain since last . Cloth Printing Inspector Required: Yes Cloth Printing Inspector Language: Latvian Accompanied by: Self / Same As Patient Allergies No Known Allergies Allergy (Verified 12/05/24 09:17) HPI HPI f/u labs: Details: Assessment & Plan (1) Post-cholecystectomy syndrome: Code(s): K91.5 - Postcholecystectomy syndrome Category: Medical (2) Delayed gastric emptying: Code(s): K30 - Functional dyspepsia Category: Medical (3) Nausea and vomiting: Code(s): R11.2 - Nausea with vomiting, unspecified Category: Medical (4) Peptic ulcer disease: Code(s): K27.9 - Peptic ulcer, site unspecified, unspecified as acute or chronic, without hemorrhage or perforation Category: Medical (5) Upper abdominal pain: Code(s): R10.10 - Upper abdominal pain, unspecified Category: Medical (6) Failure to thrive in adult: Code(s): R62.7 - Adult failure to thrive Category: Medical (7) Weight loss, abnormal: Code(s): R63.4 - Abnormal weight loss Category: Medical Plan - The patient is a 29-year-old female presenting with chronic nausea and vomiting. - Persistent nausea and vomiting despite current medication regimen of metoclopramide four times daily and initially taking pantoprazole once daily. - Re-initiation of sucrophate did not alleviate symptoms, with vomitus averaging three times daily and constant nausea. - Prior assessments include endoscopic evaluation in June 2023 revealing gastric ulcer and gastric emptying study in April 2023 confirming gastroparesis. - Dietary intake is compromised with soft stools noted, possibly related to ongoing medication use. - Notable weight reduction from 127 pounds in July to 119 pounds, indicating possible nutritional deficits. - Patient denies any new-trigger events, maintaining consistency in dietary and medicinal habits. - Continue taking metoclopramide four times a day. - Increase pantoprazole to twice daily. - as her last endoscopy Has son suggest you consider a duplex ultrasound for SMA I will order this. - Monitor and report any significant dietary intake or further weight loss. - Follow-up in two weeks for test results and progress review. - Contact the office immediately if symptoms significantly worsen. Depending on the results of the labs I may need to have her see 1 of the physicians for a 2nd opinion since I am running out of ideas as to why her condition is worsening. The only time she gained weight it seems was when I had her on Megace, but this screwed up her menstrual period and of course this is not a good long-term strategy given the potential suppression of the adrenal/pituitary axis. Orders: Orders Comprehensive Met. Panel Today K27.9 - Peptic ulcer, site unspecified, unspecified as acute or chronic, without hemorrhage or perforation, R10.10 - Upper abdominal pain, unspecified, R11.2 - Nausea with vomiting, unspecified TSH reflex Free T4 Today K27.9 - Peptic ulcer, site unspecified, unspecified as acute or chronic, without hemorrhage or perforation, R10.10 - Upper abdominal pain, unspecified, R11.2 - Nausea with vomiting, unspecified US SMA Today K27.9 - Peptic ulcer, site unspecified, unspecified as acute or chronic, without hemorrhage or perforation, R10.10 - Upper abdominal pain, unspecified, R11.2 - Nausea with vomiting, unspecified Amylase Today K27.9 - Peptic ulcer, site unspecified, unspecified as acute or chronic, without hemorrhage or perforation, R10.10 - Upper abdominal pain, unspecified, R11.2 - Nausea with vomiting, unspecified Lipase Today K27.9 - Peptic ulcer, site unspecified, unspecified as acute or chronic, without hemorrhage or perforation, R10.10 - Upper abdominal pain, unspecified, R11.2 - Nausea with vomiting, unspecified UA CC w/rflx Micro + Cult Today K27.9 - Peptic ulcer, site unspecified, unspecified as acute or chronic, without hemorrhage or perforation, R10.10 - Upper abdominal pain, unspecified, R11.2 - Nausea with vomiting, unspecified Complete Blood Count Auto Diff Today K27.9 - Peptic ulcer, site unspecified, unspecified as acute or chronic, without hemorrhage or perforation, R10.10 - Upper abdominal pain, unspecified, R11.2 - Nausea with vomiting, unspecified Medications: Refilled metoclopramide HCl (Reglan) 10 mg PO QIDACHS 120 tabs 6RF K30 - Functional dyspepsia, R11.2 - Nausea with vomiting, unspecified sucralfate (Carafate) 1 g PO QNOON 30 tabs 3RF K27.9 - Peptic ulcer, site unspecified, unspecified as acute or chronic, without hemorrhage or perforation, K91.5 - Postcholecystectomy syndrome pantoprazole (Protonix) 40 mg PO BID 60 tabs 6RF 30 days K27.9 - Peptic ulcer, site unspecified, unspecified as acute or chronic, without hemorrhage or perforation, K30 - Functional dyspepsia, K91.5 - Postcholecystectomy syndrome, R10.10 - Upper abdominal pain, unspecified, R11.2 - Nausea with vomiting, unspecified, R62.7 - Adult failure to thrive, R63.4 - Abnormal weight loss LABS: Laboratory Tests 11/18/24 11:17 WBC 5.4 Hgb 12.8 Hct 39.1 Plt Count 241 Estimated GFR > 60 Total Bilirubin 0.5 AST 20 ALT 14 Alkaline Phosphatase 57 Amylase 64 Lipase 18 TSH 1.70 11/18/24-[address]: Ronda Frederick MD ORDERED: Ua Clean Catch QUERIES: Source: Urine, Clean Catch Test Result Flag Reference Ur Color Yellow Ur Appear Clear PH 7.5 5.0-9.0 Ur Glu Negative Negative mg/dL Urine Blood Negative Negative Spec [place] Ur 1.015 1.005-1.025 Urine Protein Negative Neg-Trace mg/dL Urine Ketones Trace Negative mg/dL Ur Nitrite Negative Negative Ur Marques Esterase Negative Negative SMA ULTRASOUND TODAY'S VISIT Latvian #Michelle Live [facility] Medical History Astigmatism Underweight Panic attacks Myopia Thyroid disease GERD (gastroesophageal reflux disease) Asthma Delayed gastric emptying Surgical History Hx of endoscopy History of tubal ligation History of section History of cholecystectomy Family History Maternal Grandmother Pancreatic cancer Paternal Grandmother Pancreatic cancer Diabetes Social History Alcohol intake: never Patient Tobacco Use Status: Never used Tobacco Review of Systems Const Denies fatigue, Denies fever(s), Denies night sweats, Denies poor appetite and Reports weight loss Eyes Details: glasses Reports requires corrective lenses ENT Reports Normal hearing present, Denies dental pain, Denies dysphagia, Denies hearing loss, Denies mouth pain, Denies odynophagia, Denies throat swelling, Denies tongue swelling and Reports other (Dentition adequate) Card Reports no additional complaints Resp Reports no additional complaints GI Details: Reports abdominal pain, Denies melena, Denies bloating, Denies hematochezia, Denies constipation, Denies GI cramping, Denies dysphagia, Denies excessive flatus, Denies early satiety, Reports heartburn, Denies diarrhea, Reports nausea, Denies odynophagia, Reports vomiting and Denies hematemesis Skin/Breast Denies pruritus, Denies lesions, Denies rash and Denies jaundice Neuro Reports Normal hearing present and Denies Abnormal speech present Endo Denies fatigue Aller/Immun Denies throat swelling and Denies tongue swelling Physical Exam Vital Signs: Last Vital Signs Pulse 68 12/05/24 09:14 BP 115/72 12/05/24 09:14 BMI result Body Mass Index 20.1 Const General: cooperative, no acute distress, well developed and well groomed Nutritional Appearance: average body habitus and well nourished Orientation/consciousness: oriented to person, oriented to place and oriented to time Limitations: language barrier HEENT Head: Yes normocephalic and Yes atraumatic Eyes General: appearance normal, both eyes and all related structures Pupils: Equal, round and reactive pupils present Neck Neck: Yes normal visual inspection and Yes no lymphadenopathy Thyroid: Thyroid normal Resp Effort & Inspection: normal respiratory effort and able to speak in complete sentences Auscultation: clear to auscultation bilaterally Cardio Rate: regular rate Rhythm: regular rhythm Heart sounds: Normal, physiologic split S2 sound present Peripheral pulses: radial pulses present and posterior tibial pulses present GI Inspection: No distended and No Abdominal panniculus present Palpation (GI): Soft to palpation, nontender, no guarding, not rigid and No hepatosplenomegaly present Percussion: Yes normal to percussion Auscultation: normal bowel sounds Rectal Exam - Female: deferred Skin General skin exam: no rashes or lesions noted, turgor normal, skin not dry, no jaundice, No spider nevi and no striae Rashes: no rashes Nails: normal Neuro General: oriented to person, oriented to place and oriented to time Cranial nerves: Yes Equal, round and reactive pupils present and Yes Normal hearing present Speech: No Abnormal speech present Extrem General: Yes normal to inspection, No clubbing, No cyanosis and No edema Psych Appearance: grossly normal and well kempt Mental Status: mental status grossly normal Speech and movement: Normal speech and movement present Affect: normal affect Attitude: cooperative Thought process: Normal thought process present and not confabulating Thought content: Normal thought content present Insight: Fair insight present (Psych) Judgement: Fair judgement present (Psych) Assessment & Plan Assessment & Plan (1) Nausea and vomiting: Code(s): R11.2 - Nausea with vomiting, unspecified Category: Medical (2) Delayed gastric emptying: Code(s): K30 - Functional dyspepsia Category: Medical (3) Post-cholecystectomy syndrome: Code(s): K91.5 - Postcholecystectomy syndrome Category: Medical (4) Weight loss, abnormal: Code(s): R63.4 - Abnormal weight loss Category: Medical (5) Failure to thrive in adult: Code(s): R62.7 - Adult failure to thrive Category: Medical (6) Generalized abdominal pain: Code(s): R10.84 - Generalized abdominal pain Category: Medical Plan She brought all of her medications in today and she is taking them all appropriately. She continues to have nausea and vomiting at times vomiting up yellow bile. Today her abdominal pain has changed somewhat in that it tends to follow along the left side of the abdomen mostly laterally but at times also around the left side of the umbilicus. She is currently not having much diarrhea due to taking the Carafate. We review the labs and I so far can not find a good reason for her continued symptoms. She was symptom free for quite awhile and then everything suddenly seemed to return. The ultrasound SMA is not yet been scheduled. I am going to order an urgent CAT scan to get a better look to see if were missing something. For now I am not going to change any of her medications. We will set up a return office visit in 3 months just so we do not lose track of the each other, but we can rearrange this depending on when these tests are scheduled. Orders: Orders CT abdomen pelvis w IV con Today R10.84 - Generalized abdominal pain, R11.2 - Nausea with vomiting, unspecified Medications: New barium sulfate 2%(w/v) (Readi-Cat 2) 150 mL PO ONCE 300 mL 0RF 1 day Coding Level of Care Code Est Pt Level 3 (86701) Diagnoses Nausea and vomiting R11.2 Delayed gastric emptying K30 Post-cholecystectomy syndrome K91.5 Weight loss, abnormal R63.4 Failure to thrive in adult R62.7 Generalized abdominal pain R10.84
[2024-12-05 09:14] VITALS: BP 115/72; PULSE 68; BMI 20.1
--- OUTSIDE RECORDS SUMMARY | 2024-12-05 09:30 | XMS_ITS | Clinical Summary ---
Author Organization [address] [facility] Address [address] [place] [address] Phone Care Team Providers Care Yarder Operator Name Role Phone Ronda Frederick MD Primary Care Provider [phone] Allergies No known active allergies Medications metoprolol [...] to undergo a tilt table study at [facility] to rule out the presence of POTS versus orthostatic hypotension. Dyspnea 07/20/2021 08/04/2024 Overview (02/20/2024): Last Assessment & Plan: The patient has symptoms of chronic exertional dyspnea. She does have a history of bronchial asthma and is being evaluated by the [place] pulmonology department. Previous echocardiogram showed a normal [...] 11:25 AM EDT Office Visit Pulmonolgy - [address] [place] [address] Sabina Valenzuela NP [address] [place] [phone] Health Maintenance Due Date Last Done Comments [...] 02/26/2022 Social Influencers of Health Screening 02/26/2022 Depression Screening 03/26/2024 COVID-19 Vaccine (1 - 2023-2 5 season) 2024 Influenza Vaccine (#1) 2024 02/07/2024 HIB Vaccines [...] patient's age to complete this topic Insurance [employer] Care Teams Yarder Operator Relationship Specialty Start Date End Date Ronda Frederick MD [address] [facility] [address] [place], [place] PCP - General Internal Medicine 10/27/20
== END 2024-12-05 09:47 | disposition home or self-care (01) ==
PROVIDERS: PCP Internal Medicine; Visit Provider Nurse Practitioner
DX: R11.2 Nausea with vomiting, unspecified (principal); K30 Functional dyspepsia; K91.5 Postcholecystectomy syndrome; R63.4 Abnormal weight loss; R62.7 Adult failure to thrive; R10.84 Generalized abdominal pain
CPT/HCPCS: 99213

== ENCOUNTER → 2024-12-05 08:49 | Outpatient (BNVA) | payer OTHER, SELFPAY | PROVIDERS: PCP Internal Medicine; Visit Provider Nurse Practitioner | DX: Z71.2 Person consulting for explanation of examination or test findings (principal); K91.5 Postcholecystectomy syndrome; K30 Functional dyspepsia; R11.2 Nausea with vomiting, unspecified; K27.9 Peptic ulcer, site unspecified, unspecified as acute or chronic, without hemorrhage or perforation; R10.10 Upper abdominal pain, unspecified; R62.7 Adult failure to thrive; R63.4 Abnormal weight loss | CPT/HCPCS: 99212 ==

== ENCOUNTER 2024-12-25 07:33 | Outpatient (REF) | payer OTHER, SELFPAY ==
--- NOTE | ~2024-12-25 | CT_ITS ---
EXAMINATION: CT ABDOMEN AND PELVIS WITH CONTRAST CLINICAL INFORMATION: Nausea with vomiting. COMPARISON: None available. TECHNIQUE: Multidetector volumetric images were obtained from the superior aspect of the liver through the pubic symphysis following administration 85 mL of Omnipaque 350 intravenous contrast. Sagittal and coronal reformatted images were obtained on the technologist's workstation. Oral contrast: Yes This CT examination was performed using dose optimization techniques as appropriate, variously including the following: *Automated exposure control *Adjustment of mA and/or kV according to patient size (this includes techniques or standardized protocols for targeted exams where dose is matched to indication/reason for exam; i.e. extremities or head) *Use of iterative reconstruction technique FINDINGS: LUNG BASES: The visualized lung bases are unremarkable. LIVER, GALLBLADDER, AND BILIARY TREE: The liver is normal in size, shape, and attenuation. No focal hepatic lesion or biliary ductal dilatation is present. The gallbladder is surgically absent. PANCREAS: Unremarkable. SPLEEN: Unremarkable. ADRENAL GLANDS: Unremarkable. KIDNEYS AND URETERS: The kidneys are normal in size, shape, and attenuation. No hydronephrosis, hydroureter, or calculi seen. No perinephric stranding. BLADDER: Unremarkable. GASTROINTESTINAL TRACT: The small and large bowel are unremarkable. The appendix is unremarkable. ABDOMINAL WALL: No significant hernia is appreciated. LYMPH NODES: Normal. VASCULAR: Unremarkable. PELVIC VISCERA: The uterus is retroverted. Adnexal structures are normal. There is a 1.6 cm corpus luteal cyst in the left ovary. OSSEOUS STRUCTURES: No suspicious lytic or blastic bone lesion. No acute finding. CT/CT abdomen pelvis w IV con IMPRESSION: 1. No acute findings in the abdomen or pelvis. Electronically signed by: Barry Alvarado MD 12/25/2024 10:28 AM EDT
--- OUTSIDE RECORDS SUMMARY | 2024-12-25 07:39 | XMS_ITS | Clinical Summary ---
Author Organization [address] [facility] Address [address] [place] [address] Phone Care Team Providers Care Drapery And Upholstery Estimator Name Role Phone Ronda Frederick MD Primary Care Provider [phone] Allergies No known active allergies Medications metoprolol [...] for wheezing. 75 mL 11 04/22/19 25 Active montelukast (SINGULAIR) 10 mg tabletIndication s:Severe persistent asthma without complication (CMS/HCC V28) Take 1 tablet (10 mg total) by mouth at bedtime. 90 each 06/21/19 25 026 Active Additional Information Patient not taking.Informant: Self, Reported on 12/12/2024 metoclopramide (REGLAN) 10 mg tablet Take 1 tablet (10 mg total) by mouth 4 (four) times a day. Active Ventolin HFA 90 mcg/actuation inhalerIndicatio ns:Severe persistent asthma without complication (CMS/HCC V28) INHALE 2 PUFFS BY MOUTH EVERY 4 (FOUR) HOURS IF NEEDED FOR WHEEZING. 36 each 3 09/24/19 25 Active pantoprazole (PROTONIX) 40 mg EC tablet Take 1 tablet (40 mg total) by mouth 1 (one) time each day. 12/05/19 25 Active sucralfate (CARAFATE) 1 gram tablet Take 1 tablet (1 g total) by mouth 1 (one) time each day. 11/19/19 25 Active fluticasone furoate-vilanter oL (Breo Ellipta) 200-25 mcg/dose inhalerIndicatio ns:Severe persistent asthma without complication (CMS/HCC V28) Inhale 1 puff by mouth 1 (one) time each day. 180 each 3 12/13/19 25 Active umeclidinium (Incruse Ellipta) 62.5 mcg/actuation inhalationIndica tions:Severe persistent asthma without complication (CMS/HCC V28) Inhale 1 puff by mouth 1 (one) time each day. 3 each 3 12/13/19 25 026 Active umeclidinium (Incruse Ellipta) 62.5 mcg/actuation inhalationIndica tions:Severe persistent asthma without complication (CMS/HCC V28) Inhale 1 puff by mouth 1 (one) time each day. 3 each 4 04/30/19 25 025 Discontin ued(Reord er) fluticasone furoate-vilanter oL (Breo Ellipta) 200-25 mcg/dose inhalerIndicatio ns:Severe persistent asthma without complication (CMS/HCC V28) INHALE 1 PUFF BY MOUTH 1 (ONE) TIME EACH DAY. 180 each 3 09/18/19 25 025 Discontin ued(Reord er) Active Problems Problem Noted Date Diagnosed Date [...] undergo a tilt table study at [facility] to rule out the presence of POTS versus orthostatic hypotension. Dyspnea 07/20/2021 08/04/2024 Overview (02/20/2024): Last Assessment & Plan: The patient has symptoms of chronic exertional dyspnea. She does have a history of bronchial asthma and is being evaluated by the [place] pulmonology department. Previous echocardiogram showed a normal [...] Encounters Date Type Department Care Team Description 12/12/2024 11:25 AM EDT Office Visit Pulmonology - [address] [place] [address] Sabina Valenzuela NP Seasonal allergies (Primary Dx); Severe persistent asthma without complication (CMS/[facility] V28); Mitral valve insufficiency, unspecified etiology; Gastroesophageal reflux disease, unspecified whether esophagitis present from Last 3 Months Surgical History Surgery [...] Sign Reading Time Taken Comments Blood Pressure 122/60 12/12/2024 11:27 AM EDT Pulse 56 12/12/2024 11:27 AM EDT Temperature 36.9 C (98.5 F) 12/12/2024 11:27 AM EDT Respiratory Rate 14 12/12/2024 11:27 AM EDT Oxygen Saturation 97% 12/12/2024 11:27 AM EDT Inhaled Oxygen Concentration - - Weight 52.9 kg (116 lb 9.6 oz) 12/12/2024 11:27 AM EDT Height 162.6 cm (5' 4 ) 12/12/2024 11:27 AM EDT Body Mass Index 20.01 12/12/2024 11:27 AM EDT Plan of Treatment Upcoming Encounters Date Type Department Care Team (Late st Contact Info) Description 03/18/2025 8:30 AM EST Office Visit Pulmonology - [address] [place] [phone] Sabina Valenzuela, MICHELE [address] [place] [phone] Health Maintenance Due Date Last Done Comments DTaP,Tdap,and Td Vaccines (1 - Tdap) 2012 Hepatitis B Vaccines (1 of 3 - 19+ 3-dose series) 2012 Pneumococcal Vaccine: Pediat rics (0 to 5 Years) and At-Risk Patients (6 to 49 Years) (1 of 2 - PCV) 2012 Cervical Cancer Screening: P ap Smear 2014 HPV Vaccines (1 - 3-dose SCD M series) 2020 HIV Screening 02/26/2022 Hepatitis C Screening 02/26/2022 Social Influencers of Health Screening 02/26/2022 Depression Screening 03/26/2024 COVID-19 Vaccine (1 - 2023-2 5 season) 2024 Influenza Vaccine (#1) 2024 02/07/2024 RSV Immunization Adult Patie nts (1 - 1-dose 75+ series) 2068 HIB Vaccines Aged Out No longer eligi [...] patient's age to complete this topic Insurance [facility] Care Teams Drapery And Upholstery Estimator Relationship Specialty Start Date End Date Ronda Frederick MD [address] [facility] [address] [place], [place] PCP - General Internal Medicine 10/27/20
[2024-12-25] MEDS: iohexoL 350 MG/ML 100 ML INFUS..BTL 85 ML IV (10:16)
[2024-12-25] MEDS: Barium Sulfate Oral (Mocha) 450 ML ORAL.SUSP 900 ML PO (10:16)
== END 2024-12-25 07:34 | disposition home or self-care (01) ==
LOC: HO.CT 07:33
PROVIDERS: PCP Internal Medicine; Visit Provider Nurse Practitioner
DX: R10.84 Generalized abdominal pain (principal); R11.2 Nausea with vomiting, unspecified
CPT/HCPCS: 74177; Q9967

== ENCOUNTER → 2024-12-25 07:34 | Outpatient (BNV) | payer OTHER, SELFPAY | PROVIDERS: PCP Internal Medicine; Visit Provider Radiology Diagnostic Radiology | DX: R11.2 Nausea with vomiting, unspecified (principal) | CPT/HCPCS: 74177 ==

== ENCOUNTER 2025-02-06 08:00 | Outpatient (REF) | payer OTHER, SELFPAY ==
--- NOTE | ~2025-02-06 | XR_ITS ---
EXAMINATION: XR FOREARM, RIGHT CLINICAL INFORMATION: M79.631 - Pain in right forearm COMPARISON: None available. TECHNIQUE: AP and lateral views of the right forearm were obtained. FINDINGS: No acute cortical disruption. No lytic or blastic lesions. No metallic or radiopaque foreign body. No subcutaneous emphysema. Suboptimal evaluation of the elbow and wrist. XR/XR forearm RT 2V IMPRESSION: No acute fracture. Negative x-ray. Electronically signed by: Grupo Cason MD 02/06/2025 08:18 AM EVELYN SIEGEL
--- OUTSIDE RECORDS SUMMARY | 2025-02-06 08:04 | XMS_ITS | Encounter Summary ---
Demographics Address [address] [place] [address] Home Phone Mobile Phone Email Address Email Address Preferred Language es Marital Status Single Religion Affiliation Unknown Race Unknown Ethnic Group or Author Organization [facility] [address] Address [address] [place] [address] Care Team Providers Care Facility Manager Name Role Phone Ronda Frederick MD Primary Care Provider [phone] Encounter Details Date Type Department Care Team (Late st Contact Info) Description 01/13/2025 Telephone [facility] [address] [place] [address] [place] [phone] Gonzalo Hairston MD [address] [place] [address] [address] [place] [phone] Social History Tobacco Use Types Packs/Day Years Used Date Smoking Tobacco: Never Smokeless Tobacco: Never Alcohol Use Standard Drinks/Week Comments Never 0 (1 standard drink = 0.6 oz pur e alcohol) Comments Unknown Sex and Gender Information Value Date Recorded Sex Assigned at Not on file Legal Sex Female 2:14 AM EST Gender Identity Not on file Sexual Orientation Not on file documented as of this encounter Progress Notes * Gonzalo Hairston MD - 01/13/2025 3:07 PM EDT Please schedule the patient for a cardiac MRI to be done at [facility]. With a cardiacMRI, please make sure that they include MRI velocity flow mapping. Diagnosis: Atrial septal defect documented in this encounter Plan of Treatment Upcoming Encounters Date Type Department Care Team (Late st Contact Info) Description 03/18/2025 8:30 AM EST Office Visit Pulmonology - [place] [address] [place] [phone] Sabina Valenzuela, MICHELE [address] [place] [address] 03/31/2025 9:50 AM EST Consult [facility] Cardiology [facility] [address] [place] [address] [place] [phone] Manuel Wick MD [address] [place] [address] [address] [place] [address] 06/16/2025 10:50 AM EDT Office Visit [facility] [address] [place] [address] [address] [place] [address] Gonzalo Hairston MD [address] [place] [address] [address] [place] [phone] documented as of this encounter Visit Diagnoses Not on filedocumented in this encounter Care Teams Facility Manager Relationship Specialty Start Date End Date Ronda Frederick MD [address] [facility] [address] [place], [place] PCP - General Internal Medicine 10/27/20 documented as of this encounter
--- OUTSIDE RECORDS SUMMARY | 2025-02-06 08:04 | XMS_ITS | Clinical Summary ---
Author Organization [facility] Address [address] [place] [address] Phone Care Team Providers Care Snipper Name Role Phone Ronda Frederick MD Primary Care Provider [phone] Allergies No known active allergies Medications albuterol 2.5 mg /3 mL (0.083 %) nebulizer solutionIndicat ions:Severe persistent asthma without complication (CMS/HCC V28) Take 3 mL (2.5 mg total) by nebulization every 4 (four) hours if needed for wheezing. 75 mL 11 025 Active montelukast (SINGULAIR) 10 mg tabletIndicatio ns:Severe persistent asthma without complication (CMS/HCC V28) Take 1 tablet (10 mg total) by mouth at bedtime. 90 each 025 2025 Active metoclopramide (REGLAN) 10 mg tablet Take 1 tablet (10 mg total) by mouth 4 (four) times a day. Active Ventolin HFA 90 mcg/actuation inhalerIndicati ons:Severe persistent asthma without complication (CMS/HCC V28) INHALE 2 PUFFS BY MOUTH EVERY 4 (FOUR) HOURS IF NEEDED FOR WHEEZING. 36 each 3 025 Active pantoprazole (PROTONIX) 40 mg EC tablet Take 1 tablet (40 mg total) by mouth 1 (one) time each day. 025 Active sucralfate (CARAFATE) 1 gram tablet Take 1 tablet (1 g total) by mouth 1 (one) time each day. 025 Active fluticasone furoate-vilante roL (Breo Ellipta) 200-25 mcg/dose inhalerIndicati ons:Severe persistent asthma without complication (CMS/HCC V28) Inhale 1 puff by mouth 1 (one) time each day. 180 each 3 025 Active umeclidinium (Incruse Ellipta) 62.5 mcg/actuation inhalationIndic ations:Severe persistent asthma without complication (CMS/HCC V28) Inhale 1 puff by mouth 1 (one) time each day. 3 each 3 025 2025 Active Additional Information Patient not taking.Reported on 01/13/2025 metoprolol succinate (TOPROL-XL) 25 mg 24 hr tabletIndicatio ns:Palpitations Take 0.5 tablets (12.5 mg total) by mouth 1 (one) time each day. Do not crush or chew. 45 each 3 025 Active metoprolol succinate (TOPROL-XL) 25 mg 24 hr tablet TAKE 1/2 TABLET BY MOUTH DAILY FOR 360 DAYS 45 tablet 2 025 2024 Discontinued(R eorder) metoprolol succinate (TOPROL-XL) 25 mg 24 hr tabletIndicatio ns:Palpitations Take 0.5 tablets (12.5 mg total) by mouth 1 (one) time each day. Do not crush or chew. 45 each 3 025 2024 Discontinued Active Problems Problem Noted Date Diagnosed Date ASD (atrial septal defect) 01/13/2025 Assessment & Plan (01/13/2025 3:06 PM EDT): The patient has been having symptoms of shortness of breath. The patient's last echocardiogram from May 2023 showed a low normal left ventricular systolic function with a left ventricular ejection fraction of 50 to 55%, normal RV size and function, and mild MR. Cardiac CT scan from November 2023 showed a PFO. There was also evidence of a small shunt from the right anterior aspect of the left atrium to the coronary sinus producing focal effacement within the coronary sinus . 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 Given her symptoms of shortness of breath and the noted ASD, we will refer the patient for further evaluation with a cardiac MRI in order to evaluate her Qp/Qs. The cardiac MRI will also allow us to better evaluate the size of her right-sided heart chambers. Will also refer the patient for an evaluation with the congenital heart disease specialist Orders: MR Cardiac Morphology and Function wo and w Contrast MR Cardiac Velocity Flow Mapping; Future Mitral regurgitation 03/28/2022 Overview (08/04/2024): Assessment & [...] Palpitations 08/04/2021 Overview (08/04/2024): Assessment & Plan (01/13/2025 3:04 PM EDT): The patient has a longstanding history of episodes of palpitations. The patient was started on beta-ricki therapy. Holter monitor from August 2021 showed occasional PVCs. PVC burden of 2.5% without any evidence of arrhythmias. Repeat Holter monitor from April 2022 showed a normal sinus rhythm with occasional PVCs (PVC frequency of 2.3%) without any sustained arrhythmias. 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 On today's visit, the patient states that she continues to have episodes of palpitations which can last for up to 1 hour per episode. Given her continued symptoms, we will refer the patient for an evaluation with electrophysiology service to determine if she will be a good candidate for an ILR placement. Orders: metoprolol succinate (TOPROL-XL) 25 mg 24 hr tablet; Take 0.5 tablets (12.5 mg total) by mouth 1 (one) time each day. Do not crush or chew. Assessment & Plan (08/04/2024 11:08 AM EDT): [...] Problem Noted Date Diagnosed Date Resolved Date Chest pain 07/25/2023 01/13/2025 Assessment & Plan (08/04/2024 11:08 AM EDT): [...] a 1 year follow-up with Dr. Deleon. Dizziness 04/25/2023 08/04/2024 Overview (02/20/2024): Last Assessment & Plan: The patient continues to have symptoms of positional dizziness. Will continue with plans for the patient to undergo a tilt table study at [facility] to rule out the presence of POTS versus orthostatic hypotension. Dyspnea 07/20/2021 08/04/2024 Overview (02/20/2024): Last Assessment & Plan: The patient has symptoms of chronic exertional dyspnea. She does have a history of bronchial asthma and is being evaluated by the [place] pulmonology department. Previous echocardiogram showed a normal [...] Encounters Date Type Department Care Team Description 01/19/[address] [place] [phone] Gonzalo Hairston MD 01/13/2025 1:00 PM EDT Office Visit [address] [place] [phone] Gonzalo Hairston MD Palpitations (Primary Dx); ASD (atrial septal defect) 01/13/[address] [place] [address] Gonzalo Hairston MD 01/13/[address] [place] [address] Gonzalo Hairston MD 12/12/2024 11:25 AM EDT Office Visit Pulmonology - [place] [address] [place] [phone] Sabina Valenzuela NP Seasonal allergies (Primary Dx); Severe persistent asthma without complication (CMS/HCC V28); Mitral valve insufficiency, unspecified etiology; Gastroesophageal [...] Sign Reading Time Taken Comments Blood Pressure 100/60 01/13/2025 1:14 PM EDT Pulse 94 01/13/2025 1:14 PM EDT Temperature 36.9 C (98.5 F) 12/12/2024 11:27 AM EDT Respiratory Rate 14 12/12/2024 11:27 AM EDT Oxygen Saturation 97% 01/13/2025 1:14 PM EDT Inhaled Oxygen Concentration - - Weight 50.6 kg (111 lb 9.6 oz) 01/13/2025 1:14 P M EDT Height 162.6 cm (5' 4 ) 01/13/2025 1:14 PM EDT Body Mass Index 19.16 01/13/2025 1:14 PM EDT Plan of Treatment Upcoming Encounters Date Type Department Care Team (Late st Contact Info) Description 03/18/2025 8:30 AM EST Office Visit Pulmonology - [address] [place] [phone] Sabina Valenzuela, CYBER ANALYST [address] [place] [address] 03/31/2025 9:50 AM EST Consult [facility] Cardiology [facility] [address] [place] [address] [address] [place] [address] Manuel Wick MD [address] [place] [address] [address] [place] [address] 06/16/2025 10:50 AM EDT Office Visit [facility] [address] [place] [address] [place] [address] Gonzalo Hairston MD [address] [place] [address] [address] [place] [address] Health Maintenance Due Date Last Done Comments [...] Depression Screening 03/26/2024 COVID-19 Vaccine (1 - 2024-2 6 season) 2024 Influenza Vaccine (#1) 2024 02/07/2024 [...] patient's age to complete this topic Insurance [employer] Care Teams Snipper Relationship Specialty Start Date End Date Ronda Frederick MD [address] [facility] [address] [place], [place] PCP - General Internal Medicine 10/27/20
== END 2025-02-06 08:01 | disposition home or self-care (01) ==
LOC: HO.HOSX 08:00
DX: M79.631 Pain in right forearm (principal)
CPT/HCPCS: 73090

== ENCOUNTER 2025-02-06 08:04 | Outpatient (AMB) | payer OTHER, SELFPAY ==
[2025-02-06 08:30] VITALS: BMI 19.9
--- NOTE | 2025-02-06 08:30 | MHC.OFFVIS ---
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 Patient reports her pain began about 3 months ago. She explains the pain starts on the volar aspect of the middle forearm radiating to the fingertips. She states the pain is very strong stabbing pain, making it difficult to move her arm. Patient states she has had episodes of dizziness because of this strong pain . She is not taking any pain medications at this time. She denies any known injuries. 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 Patient reports her pain began about 3 months ago. She explains the pain starts on the volar aspect of the middle forearm radiating to the fingertips. She states the pain is very strong stabbing pain, making it difficult to move her arm. Patient states she has had episodes of dizziness because of this strong pain . She is not taking any pain medications at this time. She denies any known injuries, aside from 1 that happened ?many years ago? long before onset of any symptoms. [facility], [facility] Medical History Astigmatism Underweight Panic attacks Myopia Thyroid disease GERD (gastroesophageal reflux disease) Asthma Delayed gastric emptying Surgical History Hx of endoscopy History of tubal ligation History of section History of cholecystectomy Family History Maternal Grandmother Pancreatic cancer Paternal Grandmother Pancreatic cancer Diabetes Social History (Updated 02/06/25 @ 08:33 by JOSSE Navarro) Alcohol intake: former Patient Tobacco Use Status: Never used Tobacco Current occupational status: unemployed Review of Systems Const All systems reviewed & are unremarkable except as noted in HPI and below Physical Exam Vital Signs: BMI result Body Mass Index 19.9 Extrem Other: Patient is alert, oriented, and in no acute distress. Neuro: Normal sensation of the tips of all digits of the right hand at this time Vascular: Cap refill brisk Pain: Minimal tenderness to palpation of the volar aspect of the right forearm, approximately usp between the elbow and wrist Patient also has tenderness to palpation of the lateral epicondyle of the right elbow No tenderness to palpation of the volar aspect of the right wrist No pain with range of motion of the right wrist at this time Slightly positive Cozen's on the right, but not in the area of the patient's significant pain ROM: Patient is able to flex and extend the right elbow fully Pronation and supination full and intact Patient is able To flex the right wrist to approximately 80 degrees and extend to approximately 60 degrees without difficulty Skin: No lacerations or abrasions. Scar noted near the area of significant pain in the right forearm There is also an area of prominence noted near this scar General: No ecchymosis, erythema, or evidence of infection. Psych: Appears grossly normal Affect normal Attitude cooperative Results Reviewed Results Reviewed: X-rays obtained in the office today and independently reviewed by me, Kleber Santos PA-C, demonstrate no fracture or acute bony abnormality of the right forearm. Assessment & Plan Assessment & Plan (1) Right forearm pain: Code(s): M79.631 - Pain in right forearm Category: Medical Plan 1. Right forearm pain With old scar and area of prominence Patient is educated about this condition Patient is educated about the typical recovery course At this time, in the absence of any numbness or tingling, I feel that the origin of her pain is more likely musculoskeletal in origin Therefore, I do not feel that an EMG and nerve conduction study is indicated at this time However, I would like to obtain an MRI to assess the health of the soft tissue structures of the right forearm acute attempt to identify the source of her pain MRI ordered at this time Patient will follow-up after MRI for results review and discussion of further treatment options Orders: Orders XR forearm RT 2V Today M79.631 - Pain in right forearm MR forearm RT wo con Today M79.631 - Pain in right forearm Coding Level of Care Code New Pt Level 3 (99300) Diagnoses Right forearm pain M79.631
== END 2025-02-06 08:55 | disposition home or self-care (01) ==
LOC: HO.HOS 08:04
PROVIDERS: PCP Internal Medicine
DX: M79.631 Pain in right forearm (principal)
CPT/HCPCS: 99203

== ENCOUNTER → 2025-02-06 08:09 | Outpatient (BNV) | payer OTHER, SELFPAY | PROVIDERS: Visit Provider Radiology Diagnostic Radiology | DX: M79.631 Pain in right forearm (principal) | CPT/HCPCS: 73090 ==

== ENCOUNTER 2025-02-10 09:57 | Outpatient (REF) | payer OTHER, SELFPAY ==
--- NOTE | ~2025-02-10 | US_ITS ---
EXAMINATION: US MESENTERIC ARTERIES WITH DOPPLER CLINICAL INFORMATION: K27.9 - Peptic ulcer, site unspecified, unspecified as acute or chronic,... COMPARISON: Review CT of the abdomen and pelvis December 2024 TECHNIQUE: Ultrasound along with color Doppler imaging and spectral analysis was performed of the mesenteric arteries and proximal abdominal aorta. FINDINGS: Upper abdominal aorta is normal in caliber. Peak systolic velocity measures 184 cm/s proximal to the SMA and 130 cm/s distal to the SMA Celiac artery: Supine inspiration expiration peak systolic velocities 188 and 296 cm/s Erect inspiration expiration peak systolic velocities 160 and 183 cm/s SMA peak systolic velocity 165, 192 and 188 cm/s proximally, in the midportion and distally LYN peak systolic velocity 229 cm/s Splenic artery peak systolic velocity 361 cm/s Hepatic artery peak systolic velocity 185 cm/s. US/US SMA IMPRESSION: Celiac axis peak systolic velocity decreases with inspiration compared to expiration with the patient supine. This is not redemonstrated with the patient in the erect position and is of uncertain clinical significance. This could be further evaluated with CTA with inspiration and expiration if clinically warranted. Increased peak systolic velocity in the SMA and slight increased peak systolic velocity in the LYN. Normal SMA peak systolic velocities. Electronically signed by: Elizabeth Sanchez MD 02/10/2025 03:[address] [facility]
== END 2025-02-10 09:58 | disposition home or self-care (01) ==
LOC: HO.US 09:57
PROVIDERS: PCP Internal Medicine; Visit Provider Nurse Practitioner
DX: K27.9 Peptic ulcer, site unspecified, unspecified as acute or chronic, without hemorrhage or perforation (principal); R11.2 Nausea with vomiting, unspecified; R11.10 Vomiting, unspecified
CPT/HCPCS: 93976

== ENCOUNTER → 2025-02-10 09:58 | Outpatient (BNV) | payer OTHER, SELFPAY | PROVIDERS: PCP Internal Medicine; Visit Provider Radiology Diagnostic Radiology | DX: K27.9 Peptic ulcer, site unspecified, unspecified as acute or chronic, without hemorrhage or perforation (principal) | CPT/HCPCS: 93976 ==

== ENCOUNTER 2025-03-06 08:53 | Outpatient (AMB) | payer OTHER, SELFPAY ==
--- NOTE | 2025-03-06 09:02 | A.OFFVIS_ITS ---
Vital Signs 03/06/25 09:05 Height 5 ft 4 in Weight 108 lb 7.479 oz BMI 18.6 BP 113/75 Blood Pressure Location Lt brachial Position Sitting Pulse 91 Intake Visit Reasons: 3m Intake Note: Jeffery presents in office today in follow up for CT results. CC: Patient c/o weight loss, abd pain, nausea, and vomiting and frequent stools. Systems started and were worst on 12/25 per patient. 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 Language: Kinyarwanda Accompanied by: Self / Same As Patient Allergies No Known Allergies Allergy (Verified 03/06/25 09:09) HPI HPI 3m: Details: Assessment & Plan (1) Nausea and vomiting: Code(s): R11.2 - Nausea with vomiting, unspecified Category: Medical (2) Delayed gastric emptying: Code(s): K30 - Functional dyspepsia Category: Medical (3) Post-cholecystectomy syndrome: Code(s): K91.5 - Postcholecystectomy syndrome Category: Medical (4) Weight loss, abnormal: Code(s): R63.4 - Abnormal weight loss Category: Medical (5) Failure to thrive in adult: Code(s): R62.7 - Adult failure to thrive Category: Medical (6) Generalized abdominal pain: Code(s): R10.84 - Generalized abdominal pain Category: Medical Plan She brought all of her medications in today and she is taking them all appropriately. She continues to have nausea and vomiting at times vomiting up yellow bile. Today her abdominal pain has changed somewhat in that it tends to follow along the left side of the abdomen mostly laterally but at times also around the left side of the umbilicus. She is currently not having much diarrhea due to taking the Carafate. We review the labs and I so far can not find a good reason for her continued symptoms. She was symptom free for quite awhile and then everything suddenly seemed to return. The ultrasound SMA is not yet been scheduled. I am going to order an urgent CAT scan to get a better look to see if were missing something. For now I am not going to change any of her medications. We will set up a return office visit in 3 months just so we do not lose track of the each other, but we can rearrange this depending on when these tests are scheduled. Orders: Orders CT abdomen pelvis w IV con Today R10.84 - Generalized abdominal pain, R11.2 - Nausea with vomiting, unspecified Medications: New barium sulfate 2%(w/v) (Readi-Cat 2) 150 mL PO ONCE 300 mL 0RF [address] ABDOMEN AND PELVIS 12/25/2024 FINDINGS: LUNG BASES: The visualized lung bases are unremarkable. LIVER, GALLBLADDER, AND BILIARY TREE: The liver is normal in size, shape, and attenuation. No focal hepatic lesion or biliary ductal dilatation is present. The gallbladder is surgically absent. PANCREAS: Unremarkable. SPLEEN: Unremarkable. ADRENAL GLANDS: Unremarkable. KIDNEYS AND URETERS: The kidneys are normal in size, shape, and attenuation. No hydronephrosis, hydroureter, or calculi seen. No perinephric stranding. BLADDER: Unremarkable. GASTROINTESTINAL TRACT: The small and large bowel are unremarkable. The appendix is unremarkable. ABDOMINAL WALL: No significant hernia is appreciated. LYMPH NODES: Normal. VASCULAR: Unremarkable. PELVIC VISCERA: The uterus is retroverted. Adnexal structures are normal. There is a 1.6 cm corpus luteal cyst in the left ovary. OSSEOUS STRUCTURES: No suspicious lytic or blastic bone lesion. No acute finding. CT/CT abdomen pelvis w IV con IMPRESSION: 1. No acute findings in the abdomen or pelvis. US SMA 02/10/25 FINDINGS: Upper abdominal aorta is normal in caliber. Peak systolic velocity measures 184 cm/s proximal to the SMA and 130 cm/s distal to the SMA Celiac artery: Supine inspiration expiration peak systolic velocities 188 and 296 cm/s Erect inspiration expiration peak systolic velocities 160 and 183 cm/s SMA peak systolic velocity 165, 192 and 188 cm/s proximally, in the midportion and distally LYN peak systolic velocity 229 cm/s Splenic artery peak systolic velocity 361 cm/s Hepatic artery peak systolic velocity 185 cm/s. US/US SMA IMPRESSION: Celiac axis peak systolic velocity decreases with inspiration compared to expiration with the patient supine. This is not redemonstrated with the patient in the erect position and is of uncertain clinical significance. This could be further evaluated with CTA with inspiration and expiration if clinically warranted. Increased peak systolic velocity in the SMA and slight increased peak systolic velocity in the LYN. Normal SMA peak systolic velocities. TODAY'S VISIT Kinyarwanda# [id number] [facility] Medical History (Updated 03/06/25 @ 09:30 by HETAL Yonug) Generalized abdominal pain Upper abdominal pain Astigmatism Underweight Panic attacks Myopia Thyroid disease GERD (gastroesophageal reflux disease) Asthma Delayed gastric emptying Surgical History Hx of endoscopy History of tubal ligation History of section History of cholecystectomy Family History Maternal Grandmother Pancreatic cancer Paternal Grandmother Pancreatic cancer Diabetes Social History Alcohol intake: former Patient Tobacco Use Status: Never used Tobacco Current occupational status: unemployed Review of Systems Const Denies fatigue, Denies fever(s), Denies night sweats, Reports poor appetite and Reports weight loss Eyes Details: glasses Reports requires corrective lenses ENT Reports Normal hearing present, Denies dysphagia, Denies odynophagia, Denies throat swelling and Denies tongue swelling Card Reports no additional complaints GI Details: Denies abdominal pain, Denies melena, Denies bloating, Denies hematochezia, Denies constipation, Denies GI cramping, Denies dysphagia, Denies excessive flatus, Denies early satiety, Denies heartburn, Denies diarrhea, Denies nausea, Denies odynophagia, Denies vomiting and Denies hematemesis Skin/Breast Denies pruritus, Denies lesions, Denies rash and Denies jaundice Neuro Reports Normal hearing present and Denies Abnormal speech present Endo Denies fatigue Aller/Immun Denies throat swelling and Denies tongue swelling Physical Exam Vital Signs: Last Vital Signs Pulse 91 03/06/25 09:05 BP 113/75 03/06/25 09:05 BMI result Body Mass Index 18.6 Const General: cooperative, no acute distress, well developed and well groomed Nutritional Appearance: well nourished and thin Orientation/consciousness: oriented to person, oriented to place and oriented to time Limitations: No language barrier HEENT Head: Yes normocephalic and Yes atraumatic Eyes General: appearance normal, both eyes and all related structures Pupils: Equal, round and reactive pupils present Neck Neck: Yes normal visual inspection and Yes no lymphadenopathy Thyroid: Thyroid normal Resp Effort & Inspection: normal respiratory effort and able to speak in complete sentences Auscultation: clear to auscultation bilaterally Cardio Rate: regular rate Rhythm: regular rhythm Heart sounds: Normal, physiologic split S2 sound present Peripheral pulses: radial pulses present and posterior tibial pulses present GI Inspection: No distended and No Abdominal panniculus present Palpation (GI): Soft to palpation, nontender, no guarding, not rigid and No hepatosplenomegaly present Percussion: Yes normal to percussion Auscultation: normal bowel sounds Rectal Exam - Female: deferred Skin General skin exam: no rashes or lesions noted, turgor normal, skin not dry, no jaundice, No spider nevi and no striae Rashes: no rashes Nails: normal Neuro General: oriented to person, oriented to place and oriented to time Cranial nerves: Yes Equal, round and reactive pupils present and Yes Normal hearing present Speech: No Abnormal speech present Extrem General: Yes normal to inspection, No clubbing, No cyanosis and No edema Psych Appearance: grossly normal and well kempt Mental Status: mental status grossly normal Speech and movement: Normal speech and movement present Affect: normal affect Attitude: cooperative Thought process: Normal thought process present and not confabulating Thought content: Normal thought content present Insight: Fair insight present (Psych) and Limited insight present (Psych) Judgement: Fair judgement present (Psych) and Limited judgement present (Psych) Results Reviewed Results Reviewed: CT ABDOMEN AND PELVIS 12/25/2024 FINDINGS: LUNG BASES: The visualized lung bases are unremarkable. LIVER, GALLBLADDER, AND BILIARY TREE: The liver is normal in size, shape, and attenuation. No focal hepatic lesion or biliary ductal dilatation is present. The gallbladder is surgically absent. PANCREAS: Unremarkable. SPLEEN: Unremarkable. ADRENAL GLANDS: Unremarkable. KIDNEYS AND URETERS: The kidneys are normal in size, shape, and attenuation. No hydronephrosis, hydroureter, or calculi seen. No perinephric stranding. BLADDER: Unremarkable. GASTROINTESTINAL TRACT: The small and large bowel are unremarkable. The appendix is unremarkable. ABDOMINAL WALL: No significant hernia is appreciated. LYMPH NODES: Normal. VASCULAR: Unremarkable. PELVIC VISCERA: The uterus is retroverted. Adnexal structures are normal. There is a 1.6 cm corpus luteal cyst in the left ovary. OSSEOUS STRUCTURES: No suspicious lytic or blastic bone lesion. No acute finding. CT/CT abdomen pelvis w IV con IMPRESSION: 1. No acute findings in the abdomen or pelvis. US SMA 02/10/25 FINDINGS: Upper abdominal aorta is normal in caliber. Peak systolic velocity measures 184 cm/s proximal to the SMA and 130 cm/s distal to the SMA Celiac artery: Supine inspiration expiration peak systolic velocities 188 and 296 cm/s Erect inspiration expiration peak systolic velocities 160 and 183 cm/s SMA peak systolic velocity 165, 192 and 188 cm/s proximally, in the midportion and distally LYN peak systolic velocity 229 cm/s Splenic artery peak systolic velocity 361 cm/s Hepatic artery peak systolic velocity 185 cm/s. US/US SMA IMPRESSION: Celiac axis peak systolic velocity decreases with inspiration compared to expiration with the patient supine. This is not redemonstrated with the patient in the erect position and is of uncertain clinical significance. This could be further evaluated with CTA with inspiration and expiration if clinically warranted. Increased peak systolic velocity in the SMA and slight increased peak systolic velocity in the LYN. Normal SMA peak systolic velocities. Assessment & Plan Assessment & Plan (1) Delayed gastric emptying: Code(s): K30 - Functional dyspepsia Category: Medical (2) Post-cholecystectomy syndrome: Code(s): K91.5 - Postcholecystectomy syndrome Category: Medical (3) Peptic ulcer disease: Code(s): K27.9 - Peptic ulcer, site unspecified, unspecified as acute or chronic, without hemorrhage or perforation Category: Medical (4) Nausea and vomiting: Code(s): R11.2 - Nausea with vomiting, unspecified Category: Medical (5) Left sided abdominal pain: Code(s): R10.9 - Unspecified abdominal pain Category: Medical (6) Failure to thrive in adult: Code(s): R62.7 - Adult failure to thrive Category: Medical (7) Weight loss, abnormal: Code(s): R63.4 - Abnormal weight loss Category: Medical Plan Kinyarwanda# [id number] Her current GI regimen consists of Reglan 10 mg 4 times a day, Carafate 1 g tablet at noon, pantoprazole 40 mg twice a day. Today we will be adding dicyclomine 20 mg 4 times a day and Marinol 3 times a day. Subjective Patient is here for follow-up concerning nausea vomiting and severe weight loss. Unfortunately, she has lost another 9 lb since the last visit bringing her weight to 108 and her BMI is 17. She has had ongoing problems with this but after a short treatment with Megace and uncovering and treating her gastroparesis she has been stable for awhile. Describes strong, persistent stomach ache with episodes that can last up to three days; at times she feels fine and then pain recurs suddenly. Nausea occurs whenever she tries to eat, leading to markedly reduced intake; she has been using Ensure to maintain some i ntake. She vomited on onset. Pain location was demonstrated during visit. She has been taking metoclopramide four times daily regardless of meals and sucralfate once daily, but feels medications are no longer helping. Bowel movements: had a period two weeks ago without bowel movements but now is going; stools are soft, consistent with history of cholecystectomy. She is concerned about significant weight loss. Prior cholecystectomy. Objective - CT of the abdomen and pelvis and mesenteric ultrasound: studies overall unrevealing except for a left ovarian cyst. -EGD performed 06/2023 did show scarring of the stomach, biopsies seem to so inactive gastritis so this may be resolving from prior peptic ulcer disease. Assessment & Plan Abdominal pain with nausea and decreased oral intake; suspected colonic spasm: Imaging and prior studies unrevealing except for a left ovarian cyst, which is unlikely to explain current symptoms. Clinical suspicion for severe colonic spasm discussed. - Start dicyclomine; may take up to four times daily or use as needed when symptoms occur. - Continue metoclopramide four times daily; provide additional dose to use as needed for breakthrough nausea. - Discussed colonoscopy as the remaining diagnostic test option; patient may defer pending response to antispasmodic therapy. - If inadequate response, consider second-opinion evaluation with one of the physicians here to explore additional etiologies. - Follow up in 4 weeks; I will work to accommodate scheduling. Unintentional weight loss and poor appetite - Trial dronabinol (Marinol) three times daily to stimulate appetite and help with nausea, pending insurance approval. - Controlled substance counseling provided: do not share, keep out of reach of children, bring ID when picking up. - Prior authorization likely required; I will notify our team to initiate this process. Left ovarian cyst - Incidental on imaging. Advised patient to discuss with her H[facility] PASSER for further assessment regarding potential hormonal contributions or need for gynecologic follow-up. Certainly, flares in hormones can cause nausea and vomiting but that would be outside of my scope to discuss with her. Return office visit in 4 weeks. Medications: New dicyclomine 20 mg PO QID 120 tabs 6RF 30 days R10.9 - Unspecified abdominal pain dronabinol (Marinol) 5 mg PO TID 90 caps 5RF nausea and vomiting R11.2 - Nausea with vomiting, unspecified, R62.7 - Adult failure to thrive, R63.4 - Abnormal weight loss Changed From metoclopramide HCl (Reglan) 10 mg PO QIDACHS 120 tabs 6RF K30 - Functional dyspepsia, R11.2 - Nausea with vomiting, unspecified To metoclopramide HCl (Reglan) 10 mg orally qid and prn 5th dose for N/V; 150 tabs 6RF K30 - Functional dyspepsia, R11.2 - Nausea with vomiting, unspecified Coding Level of Care Code Est Pt Level 4 (12693) Diagnoses Delayed gastric emptying K30 Post-cholecystectomy syndrome K91.5 Peptic ulcer disease K27.9 Nausea and vomiting R11.2 Left sided abdominal pain R10.9 Failure to thrive in adult R62.7 Weight loss, abnormal R63.4 Time Spent (min) 36
[2025-03-06 09:05] VITALS: BP 113/75; PULSE 91; BMI 18.6
== END 2025-03-06 09:54 | disposition home or self-care (01) ==
LOC: HO.HGI 08:54
PROVIDERS: PCP Internal Medicine; Visit Provider Nurse Practitioner
DX: K30 Functional dyspepsia (principal); K91.5 Postcholecystectomy syndrome; K27.9 Peptic ulcer, site unspecified, unspecified as acute or chronic, without hemorrhage or perforation; R11.2 Nausea with vomiting, unspecified; R10.9 Unspecified abdominal pain; R62.7 Adult failure to thrive; R63.4 Abnormal weight loss
CPT/HCPCS: 99214

== ENCOUNTER → 2025-03-06 08:53 | Outpatient (BNVA) | payer OTHER, SELFPAY | PROVIDERS: PCP Internal Medicine; Visit Provider Nurse Practitioner | DX: K30 Functional dyspepsia (principal); R11.2 Nausea with vomiting, unspecified; R10.84 Generalized abdominal pain; R62.7 Adult failure to thrive; R63.4 Abnormal weight loss; Z68.1 Body mass index [BMI] 19.9 or less, adult; K91.5 Postcholecystectomy syndrome | CPT/HCPCS: 99212 ==

== ENCOUNTER 2025-03-17 08:25 | Outpatient (REF) | payer OTHER, SELFPAY ==
--- NOTE | ~2025-03-17 | XR_ITS ---
EXAMINATION: XR KNEE, RIGHT CLINICAL INFORMATION: M25.569 - Pain in unspecified knee COMPARISON: None available. TECHNIQUE: Two views of the right knee. Bilateral knees one view FINDINGS: Right knee: No fracture or joint effusion. Alignment is anatomic. Joint spaces are maintained. No abnormal soft tissue calcification. XR/XR knee RT 3V IMPRESSION: No acute findings Electronically signed by: Saji Leung MD 03/18/2025 04:33 PM [facility]
--- OUTSIDE RECORDS SUMMARY | 2025-03-18 08:28 | XMS_ITS | Clinical Summary ---
Author Organization [address] [facility] Address [address] [place] [address] Phone Care Team Providers Care Copy Chief Name Role Phone Ronda Frederick MD Primary Care Provider [phone] Allergies No known active allergies Medications albuterol [...] 2.3%) without any sustained arrhythmias. 30-day ambulatory secured entrance monitor done in April 2023 showed a [...] to undergo a tilt table study at [facility] to rule out the presence of POTS versus orthostatic hypotension. Dyspnea 07/20/2021 08/04/2024 Overview (02/20/2024): Last Assessment & Plan: The patient has symptoms of chronic exertional dyspnea. She does have a history of bronchial asthma and is being evaluated by the [place] pulmonology department. Previous echocardiogram showed a normal [...] Hospital [address] [place] [address] Gonzalo Hairston MD 01/13/2025 1:00 PM EDT Office Visit [facility] [address] [facility] [address] [place] [phone] Gonzalo Hairston MD Palpitations (Primary Dx); ASD (atrial septal defect) 01/13/2025 Telephone [facility] [address] [facility] [address] [place] [phone] Gonzalo Hairston MD 01/13/2025 Telephone [facility] [address] [place] [address] Gonzalo Hairston MD from Last 3 Months [...] 8:30 AM EST Office Visit Pulmonology - [place] [address] [place] [phone] Sabina Valenzuela, MICHELE [address] [place] [phone] 03/31/2025 9:50 AM EST Consult [facility] [address] [place] [phone] Manuel Wick MD [address] [place] [address] [place] [address] 06/16/2025 10:50 AM EDT Office Visit [facility] [address] [place] [phone] Gonzalo Hairston MD [address] [place] [address] [address] [place] [phone] Health Maintenance Due Date Last Done Comments [...] this topic Insurance [employer] Care Teams Copy Chief Relationship Specialty Start Date End Date Ronda Frederick MD [address] [facility] [address] [place], [place] PCP - General Internal Medicine 10/27/20
== END 2025-03-17 08:26 | disposition home or self-care (01) ==
LOC: HO.HOSX 08:25
PROVIDERS: Visit Provider Physician Assistant
DX: M22.2X1 Patellofemoral disorders, right knee (principal)
CPT/HCPCS: 73562

== ENCOUNTER 2025-03-17 15:16 | Outpatient (AMB) | payer OTHER, SELFPAY ==
[2025-03-17 15:23] VITALS: BMI 18.6
--- NOTE | 2025-03-17 15:23 | MHC.OFFVIS ---
Vital Signs 03/17/25 15:23 Height 5 ft 4 in Weight 108 lb 7 oz BMI 18.6 Intake Visit Reasons: New prob-RT knee pain Intake Note: Jeffery is a 30 year old female who presents today for a New Problem Visit for evaluation of Right Knee Pain. Patient reports for the past 3 months she has been experiencing pain on the lateral and posterior aspect of the right knee, with occasional swelling. She explains her pain worsens when she goes from a sitting position to a standing position, primarily after sitting for a while. She is able to use stairs without any pain or discomfort. She has not tried knee braces, pain medications, or physical therapy. She denies any previous injuries or surgeries to the right knee. Network Operations Center Technician Services: Network Operations Center Technician Present ([employer]upo ([id number])) Allergies No Known Allergies Allergy (Verified 03/17/25 15:27) HPI HPI New prob-RT knee pain: Details: The patient is a 30-year-old female who presents to the office today for evaluation of right knee pain. She denies any injury or trauma to the right knee. She reports the pain has been present for the past 3 months. She reports that the pain can fluctuate between the medial lateral and posterior aspects of the knee. She has not had any treatment to this date. She reports that the pain is worse when she is sitting for long periods of time and then goes to a standing position. [facility] Medical History (Updated 03/17/25 @ 15:38 by Melany Joseph PA-C) Generalized abdominal pain Upper abdominal pain Astigmatism Underweight Panic attacks Myopia Thyroid disease GERD (gastroesophageal reflux disease) Asthma Delayed gastric emptying Surgical History Hx of endoscopy History of tubal ligation History of section History of cholecystectomy Family History Maternal Grandmother Pancreatic cancer Paternal Grandmother Pancreatic cancer Diabetes Social History Alcohol intake: former Patient Tobacco Use Status: Never used Tobacco Current occupational status: unemployed Review of Systems Const All systems reviewed & are unremarkable except as noted in HPI and below Physical Exam Vital Signs: BMI result Body Mass Index 18.6 Const General: cooperative, healthy appearing and no acute distress Resp Effort & Inspection: normal respiratory effort and able to speak in complete sentences Extrem Other: Right knee: Normal to inspection. No ecchymosis, erythema, or joint effusion. Mild tenderness to palpation along the medial and lateral joint lines. Full knee extension and flexion. Negative Yonug's. Negative anterior drawer. No excessive laxity with varus or valgus stress. NVI. Psych Appearance: grossly normal Mental Status: mental status grossly normal Attitude: cooperative Assessment & Plan Assessment & Plan (1) Patellofemoral syndrome of right knee: Code(s): M22.2X1 - Patellofemoral disorders, right knee Category: Medical Plan The patient is a 30-year-old female who presents to the office today for evaluation of right knee pain. She denies any injury or trauma to the right knee. She reports the pain has been present for the past 3 months. She reports that the pain can fluctuate between the medial lateral and posterior aspects of the knee. She has not had any treatment to this date. She reports that the pain is worse when she is sitting for long periods of time and then goes to a standing position. While in the office today, we discussed knee bracing and physical therapy. Patient is amenable to try both of these options. The patient was fit for a Genumed knee brace off the shelf. A formal physical therapy order has been placed at this time. She will follow up PRN, sooner if needed. X-rays of the right knee which were obtained while in the office today and were reviewed by me, Melany Joseph PA-C, revealed no acute fracture or dislocation. Orders: Orders XR knee RT 3V Today M25.569 - Pain in unspecified knee Coding Level of Care Code Est Pt Level 3 (82951) Diagnoses Patellofemoral syndrome of right knee M22.2X1
--- OUTSIDE RECORDS SUMMARY | 2025-03-17 16:30 | XMS_ITS | Clinical Summary ---
Author Organization [address] [facility] Address [address] [place] [address] Phone Care Team Providers Care Test Rider Name Role Phone Ronda Frederick MD Primary Care Provider [phone] Allergies No known active allergies Medications albuterol 2.5 mg /3 mL (0.083 %) nebulizer solutionIndicati ons:Severe persistent asthma without complication (CMS/HCC V28) Take 3 mL (2.5 mg total) by nebulization every 4 (four) hours if needed for wheezing. 75 mL 11 5 Active montelukast (SINGULAIR) 10 mg tabletIndication s:Severe [...] FOR WHEEZING. 36 each 3 5 Active pantoprazole (PROTONIX) 40 mg EC tablet Take 1 tablet (40 mg total) by mouth 1 (one) time each day. 5 Active sucralfate (CARAFATE) 1 gram tablet Take 1 tablet (1 g total) by mouth 1 (one) time each day. 5 Active fluticasone furoate-vilanter oL (Breo Ellipta) 200-25 mcg/dose inhalerIndicatio ns:Severe persistent asthma without complication (CMS/HCC V28) Inhale 1 puff by mouth 1 (one) time each day. 180 each 3 5 Active umeclidinium (Incruse Ellipta) 62.5 mcg/actuation inhalationIndica tions:Severe persistent asthma without complication (CMS/HCC V28) Inhale 1 puff by mouth 1 (one) time each day. 3 each 3 5 026 Active Additional Information Patient not taking.Reported on 01/13/2025 metoprolol succinate (TOPROL-XL) 25 mg 24 hr tabletIndication s:Palpitations Take 0.5 tablets (12.5 mg total) by mouth 1 (one) time each day. Do not crush or chew. 45 each 3 5 Active Active Problems Problem [...] 2.3%) without any sustained arrhythmias. 30-day ambulatory awake overnight monitor done in April 2023 showed a normal [...] to undergo a tilt table study at [facility] to rule out the presence of POTS versus orthostatic hypotension. Dyspnea 07/20/2021 08/04/2024 Overview (02/20/2024): Last Assessment & Plan: The patient has symptoms of chronic exertional dyspnea. She does have a history of bronchial asthma and is being evaluated by the [place] pulmonology department. Previous echocardiogram showed a normal [...] Type Department Care Team Description 01/19/2025 Telephone [facility] [address] [place] [address] Gonzalo Hairston MD 01/13/2025 1:00 PM EDT Office Visit [facility] [address] [facility] [address] [place] [phone] Gonzalo Hairston MD Palpitations (Primary Dx); ASD (atrial septal defect) 01/13/2025 Telephone [facility] [address] [facility] [place] [phone] Gonzalo Hairston MD 01/13/2025 Telephone [facility] [address] [place] [address] Gonzalo Hairston MD from Last 3 Months Surgical History Surgery [...] on file Sexual Orientation Not on file Last Filed Vital Signs Vital Sign Reading [...] 8:30 AM EST Office Visit Pulmonology - [place] [address] [place] [phone] Sabina Valenzuela, MICHELE [address] [place] [phone] 03/31/2025 9:50 AM EST Consult [facility] [address] [place] [phone] Manuel Wick MD [address] [place] [address] [place] [address] 06/16/2025 10:50 AM EDT Office Visit [facility] Cardiology [facility] [address] [place] [phone] Gonzalo Hairston MD [address] [place] [address] [address] [place] [phone] Health Maintenance Due Date Last Done Comments [...] this topic Insurance [employer] Care Teams Test Rider Relationship Specialty Start Date End Date Ronda Frederick MD [address] [place], [place] PCP - General Internal Medicine 10/27/20
== END 2025-03-17 16:14 | disposition home or self-care (01) ==
LOC: HO.HOS 15:16
PROVIDERS: PCP Internal Medicine; Visit Provider Physician Assistant
DX: M22.2X1 Patellofemoral disorders, right knee (principal)
CPT/HCPCS: 99213